=== PATIENT | female | born 1970 | race Caucasian/White ===

== ENCOUNTER 2019-01-17 01:38 | Outpatient (CLI) | payer OTHER, SELFPAY ==
--- NOTE | 2019-01-17 15:40 | DI.MRI_ITS ---
SYMPTOMS/DIAGNOSIS: LEFT SHOULDER PAIN, M25.512, ARM BURNING, LOSS OF RANGE OF MOTION MRI OF THE LEFT SHOULDER: Routine noncontrast examination was performed. There is hyperintense signal seen in the supraspinatus tendon consistent with a partial tear. The infraspinatus, teres minor and subscapularis tendons are intact. The rotator cuff muscles show normal signal and size. No significant muscular fatty atrophy is seen. The biceps tendon has a normal appearance and location. There is a small amount of fluid in the subacromial-subdeltoid bursa. There is a normal amount of fluid seen in the glenohumeral joint. The articular cartilage of the glenohumeral joint appears well maintained. The glenoid labrum appears grossly unremarkable on this noncontrast examination. Marrow signal is within normal limits. No evidence of an occult fracture or avascular necrosis is present. No soft tissue mass is appreciated. The ligaments appear intact. IMPRESSION: 1. Partial tear of the supraspinatus tendon. 2. Small amount of fluid in the subacromial-subdeltoid bursa consistent with bursitis.
== END 2019-01-17 01:58 ==
PROVIDERS: PCP Family Medicine; Visit Provider Physician Assistant Medical
DX: M25.512 Pain in left shoulder (principal); M25.812 Other specified joint disorders, left shoulder; M75.102 Unspecified rotator cuff tear or rupture of left shoulder, not specified as traumatic
CPT/HCPCS: 73221

== ENCOUNTER → 2019-02-11 07:57 | Outpatient (BNVA) | payer MEDICARE, MEDICAID, SELFPAY | PROVIDERS: PCP Family Medicine; Referring Provider Family Medicine; Visit Provider Orthopaedic Surgery | DX: R69 Illness, unspecified (principal) ==

== ENCOUNTER 2019-02-11 08:02 | Day surgery (SDC) | payer MEDICARE, MEDICAID, SELFPAY ==
[2019-02-11] VITALS (10 sets, daily range): BP systolic 102–130; BP diastolic 60–82; PULSE 62–74; RESP 12–19; TEMP 36.5–36.7; O2SAT 96–98
[2019-02-11] MEDS: Lactated Ringers 1,000 ML 80 ML IV ×2 (09:02→13:55)
[2019-02-11] MEDS: Bupivacaine LIPOSOME/PF 133 MG/10 ML VIAL IJ (11:40)
[2019-02-11] MEDS: Bupivacaine 0.5% Pres-Free 30 ML VIAL (11:40)
--- NOTE | 2019-02-11 15:39 | W.PM.DSUDISC ---
Discharge Plan Disposition Patient Disposition: HOME Condition: Good Discharge Details Reason For Visit: L rotator cuff repair Admit Date/Time: 02/11/19 08:02 Admit Provider: Micky Parikh Attending Provider: Micky Parikh Primary Care Provider: Vanessa Lewis Home Meds and New Rx's Prescriptions: New ibuprofen 600 mg tablet 600 mg PO TID Qty: 30 RF: 0 oxycodone-acetaminophen 5-325 mg tablet 1 tab PO Q4H PRN (Reason: pain) Qty: 20 RF: 0 Continued levothyroxine 125 MCG tablet 125 mcg PO DAILY RF: 0 Botox 100 UNIT recon soln IJ DIRECTED. RF: 0 lidocaine 5 % Adhesive Patch,Medicated 1 patch TOPICAL DAILY RF: 0 sertraline 25 mg Tablet 75 mg PO HS RF: 0 ranitidine HCl 150 mg Capsule 150 mg PO BID RF: 0 cetirizine 10 mg Capsule 10 mg PO DAILY RF: 0 acetaminophen [Pain Reliever Extra Strength] 500 MG tablet 500 mg PO PRN PRNRF: 0 spironolactone 25 MG tablet 25 mg PO DAILY RF: 0 lisinopril 2.5 MG tablet 2.5 mg PO DAILY RF: 0 metoprolol succinate 50 MG tablet extended release 24 hr 50 mg PO DAILY RF: 0 aspirin 81 MG tablet,delayed release (DR/EC) 81 mg PO DAILY RF: 0 atorvastatin [Lipitor] 80 MG tablet 80 mg PO QPM Qty: 30 RF: 3 pantoprazole 40 MG tablet,delayed release (DR/EC) 40 mg PO BID Qty: 60 RF: 1 rosuvastatin [Crestor] 40 MG tablet 40 mg PO HS RF: 0 Discontinued naproxen 250 mg Tablet 250 mg PO DAILY RF: 0 Discharge Instructions Additional Instructions: Keep sling/pillow on 29/05. May remove to dress and shower. When out of sling keep L arm at side--don't reach away from body with L arm. Apply cryocuff continuously to L shoulder overnite tonite. Tomorrow, start to use 4 times/day for 1 hour each time. May remove dressings, shower, and get incision wet in 72 hours. May leave incision uncovered when it is dry and sealed. Take ibuprofen 3 times/day for 10 days to decrease inflammation and pain. Take oxycodone for breakthru pain. Follow up with in 2 weeks. Referrals: Micky Parikh MD [ [facility] STAFF PHYSICIAN] - (f/u in 2 weeks.) Activity:: Activity as Tolerated Equipment/Supplies:: sling/pillow Diet:: As Tolerated Discharge Orders Discharge Orders: Discharge Order (Routine); Ordered 02/11/19 Ordered By: Micky Parikh DS: Diagnosis Discharge Diagnosis (1) Left rotator cuff tear: Status: Chronic
[2019-02-11] MEDS: oxyCODONE-CR 10 MG TABCR PO (16:10)
--- NOTE | 2019-02-12 16:45 | ROE_ITS ---
DATE OF PROCEDURE: February 11, 2019 PREOPERATIVE DIAGNOSIS: 1. Torn rotator cuff, left. 2. DJD of the AC joint, left. POSTOPERATIVE DIAGNOSIS: Same. PROCEDURE: 1. Repair of torn rotator cuff, left. 2. Excision of the distal clavicle, left. ANESTHESIA: General. SURGEON: Micky Parikh M.D. AGRICULTURAL SALES REPRESENTATIVE: Manas Voss INDICATIONS: This is a 48-year-old white female who fell onto her left shoulder about four months ag o. She has had continued pain in her left shoulder since that time. This has not responded to conse rvative treatment. It is interfering with sleep and activities of daily living. MRI scan showed eit her a high-grade partial-thickness tear or a full-thickness tear of the supraspinatus tendon on the l eft, as well as DJD of the AC joint. Because of failure of conservative treatment to alleviate her p ain, surgery was recommended. The risks and complications of the procedure were explained to the pat ient in detail preoperatively. PROCEDURE: The patient was taken to the Operating Room on 02/11/19. She was placed supine on the oper ating table and a general anesthetic was administered. She was placed in the lozada chair position a nd then the left shoulder was prepped and draped free in the usual sterile fashion. An incision was made on the superior aspect of the left shoulder beginning medial to the AC joint and it was extended lateral to the anterolateral corner of the acromion by about two inches. The incisi on was carried down to the fascia. The deltoid fascia was then split in line with the fibers of the deltoid at the anterolateral corner of the acromion and then the anterior deltoid was sharply reflect ed from the anterior acromion and anterior distal clavicle. An acromioplasty was performed to improv e exposure. The patient had a high-grade partial-thickness tear; it was probably 80% to 90% through into the joint. It was involving the supraspinatus tendon. I then completed the tear, freeing up th e supraspinatus from the tuberosity, where I then debrided the abnormal tendon tissue down to healthy tendon. I prepared the footprint with a rasp so there was bleeding bone. I then put a single 5.0 m m anchor into the attachment of the supraspinatus. I then placed sutures of the FiberWire from the a nchor through the supraspinatus tendon in a horizontal mattress fashion. The wound was irrigated wit h saline solution and the joint was inspected and no injury to the articular cartilage of the humeral head was seen. The biceps tendon appeared to be intact. I tied the sutures tightly from the anchor . I then completed the repair by approximating the ends of the tendon with interrupted [id number] ht sutures of #1 Vicryl suture material. An excellent water-tight closure was obtained without tensi on. I then inspected the AC joint. The distal clavicle was hypertrophied with no normal tissue visible o n the distal clavicle. The distal 5 mm of the clavicle was then excised with the oscillating saw. T he resected end of the clavicle was packed with bone wax to limit bleeding. The wound was irrigated with Betadine and saline solution. The wound margins were infiltrated with 0.5% Marcaine with an epi nephrine solution. Three drill holes were placed through the anterior acromion and then the anterior deltoid was reattached to the acromion with [id number] sutures of #2 FiberWire, passed through the drill holes in the acromion in a [id number]-[id number]-tzdef fashion. The lateral deltoid muscle split was r epaired with interrupted [id number]-ab-eexxv sutures of #1 Vicryl suture material. The AC joint capsule was repaired with a few interrupted #2 FiberWire sutures and the periosteum over the distal clavicle was approximated with interrupted #1 Vicryl suture material. The subcu was approximated with interru pted #2-0 Vicryl sutures and a subcuticular closure was performed with #4-0 Vicryl, supplemented with tissue glue. Sterile dressings were applied followed by a light pressure dressing. The left upper extremity was then placed in an abduction pillow sling orthosis. Her anesthesia was reversed without complications. Estimated blood loss was 50 to 75 cc's. She was discharged to Recovery in good cond ition. Although I expected to admit this patient OBV overnight, she insisted on going home. She had good pa in relief from her interscalene block and did not want to stay in the hospital. She was therefore di scharged home from the Day Surgery Unit. She was given instructions to wear the abduction pillow sli ng orthosis at all times, even to sleep. She is to sleep propped up in bed or in a recliner. She ma y remove the sling/pillow to shower and dress. She may remove her dressings, shower and get her inci sions wet in 72 hours. She was given a prescription for inflammation of ibuprofen 600 mg p.o. t.i.d. for ten days and a prescription for pain of Oxycodone with APAP 5/325 one tablet every four hours, a s needed. She will follow-up with me in two weeks.
== END 2019-02-11 16:47 | disposition home or self-care (01) | DRG 512 ==
LOC: PDS 15:40 → SUR 02-26 16:06
PROVIDERS: PCP Family Medicine; Visit Provider Orthopaedic Surgery
PROC: 0LQ20ZZ Repair Left Shoulder Tendon, Open Approach (ICD-10-PCS; CPT 23410; principal; 2019-02-11 10:30)
DX: S46.012A Strain of muscle(s) and tendon(s) of the rotator cuff of left shoulder, initial encounter (principal); W19.XXXA Unspecified fall, initial encounter; M19.012 Primary osteoarthritis, left shoulder; F17.210 Nicotine dependence, cigarettes, uncomplicated; E03.9 Hypothyroidism, unspecified; G89.18 Other acute postprocedural pain
CPT/HCPCS: 64415; 23410; 23120; 76942; C1713; L3670

== ENCOUNTER 2019-02-26 10:21 | Outpatient (CLI) | payer MEDICARE, MEDICAID, SELFPAY ==
--- NOTE | 2019-02-26 10:14 | DI.RAD_ITS ---
SYMPTOMS/DIAGNOSIS: FOLLOW UP LEFT SHOULDER: A metallic anchor is seen in the humeral head related to previous rotator cuff repair. There has been resection of the distal clavicle. The humeral head appears normally positioned.
== END 2019-02-26 10:41 ==
PROVIDERS: PCP Family Medicine; Referring Provider Family Medicine; Visit Provider Orthopaedic Surgery
DX: S46.012D Strain of muscle(s) and tendon(s) of the rotator cuff of left shoulder, subsequent encounter (principal); X58.XXXD Exposure to other specified factors, subsequent encounter
CPT/HCPCS: 73020

== ENCOUNTER 2019-06-12 16:27 | Emergency (ER) | payer MEDICARE, MEDICAID, SELFPAY ==
[2019-06-12 16:31] VITALS: BP 118/75; PULSE 64; RESP 12; TEMP 36.6; O2SAT 96
--- NOTE | 2019-06-12 16:38 | W.ED.GENAD ---
Discharge Plan Disposition Patient Disposition: HOME Condition: Good Discharge Details Chief Complaint: Laceration Clinical Impression: Hand laceration Primary Care Provider: Vanessa Lewis ED Provider: Siri Gutierrez Home Meds and New Rx's Prescriptions: Continued oxycodone-acetaminophen 5-325 mg tablet 1 tab PO Q6H MDD 20 mg PRN (Reason: pain) Qty: 20 RF: 0 ibuprofen 600 mg tablet 600 mg PO TID Qty: 30 RF: 0 levothyroxine 125 MCG tablet 125 mcg PO DAILY RF: 0 Botox 100 UNIT recon soln 0 IJ DIRECTED. RF: 0 lidocaine 5 % Adhesive Patch,Medicated 1 patch TOPICAL DAILY RF: 0 sertraline 25 mg Tablet 75 mg PO HS RF: 0 ranitidine HCl 150 mg Capsule 150 mg PO BID RF: 0 cetirizine 10 mg Capsule 10 mg PO DAILY RF: 0 oxycodone-acetaminophen [Percocet] 5-325 mg tablet 1 tab PO HS PRN RF: 0 acetaminophen [Pain Reliever Extra Strength] 500 MG tablet 500 mg PO PRN PRNRF: 0 spironolactone 25 MG tablet 25 mg PO DAILY RF: 0 lisinopril 2.5 MG tablet 2.5 mg PO DAILY RF: 0 metoprolol succinate 50 MG tablet extended release 24 hr 50 mg PO DAILY RF: 0 aspirin 81 MG tablet,delayed release (DR/EC) 81 mg PO DAILY RF: 0 atorvastatin [Lipitor] 80 MG tablet 80 mg PO QPM Qty: 30 RF: 3 pantoprazole 40 MG tablet,delayed release (DR/EC) 40 mg PO BID Qty: 60 RF: 1 rosuvastatin [Crestor] 40 MG tablet 40 mg PO HS RF: 0 Discharge Instructions Instructions: Laceration (ED) Additional Instructions: Please keep wound clean, dry, covered. Keep current dressing on for the next 24 hours. After that, please cover the Band-Aid. When appropriate, please wear gloves. Please monitor for signs of infection including redness, warmth, drainage, increased pain, fever/chills. If these or other new/worsening symptoms arise please seek care urgently once again. Please return in 10 days for suture removal. Referrals: Vanessa Lewis [Primary Care Provider] - Discharge Data Discharge Date/Time-TO BE ENTERED AT DEPARTURE: 06/12/19 17:26 Medical Decision Making Patient is a 49 year old RHD [facility] with c/c of laceration to the left thenar emmanance. Reports that she was cutting zip ties off of a new bike with an exacto knife when she slipped and cut her hand. Denies other injury at the time of the incident. Tetanus UTD, she reports last 2 years. Denies numbness or tingling but patient has dimnished 2 point discrimination on exam. She has a large amount of soft tissue swelling around the wound. Appears to have injured a vessel, patient actively bleeding. Do not see evidence of deep structure injury. Ligamentous exam is intact. Full ROM of thumb. Laceration is 3cm over the left thenar emmenance. Patient and I discussed risks/benefits of closure. Discussed expected procedural steps, she voices understanding and wishes to proceed. Please see procedure note. Patient tolerated this well. Preformed with standard sterile technique. Wound explored to base in a bloodless field with no FB or debris noted. Discussed wound care in depth. Wound dressed by myself. She will return for suture removal in 10 days. discussed sxs of infection and when to seek care urgently once again. All of her questions and cocncerns were addressed, she is in agreemtn with this plan. HPI General Mode of arrival: ambulatory. Date/Time Provider Initiated Documentation: 06/12/19 16:30. Limitations to Documentation: no limitations. Information obtained by: patient and RN notes reviewed. History of Present Illness 49 year old F presents to the emergency department with the chief complaint of left hand laceration, described as severe, with intensity rated at 10. Quality is described as burning, and is localized to the left and upper extremity. Patient reports no radiation. Patient started experiencing this minute(s) and it has been constant. No relieving factors improve symptom(s), Movement worsens symptoms . Patient notes no other symptoms.. Patient did receive the following treatments prior to arrival, none Related Data Home Medications Medication Instructions Recorded Confirmed levothyroxine 125 mcg PO DAILY 04/17/15 02/26/19 Botox 0 IJ DIRECTED. vial 07/27/16 02/26/19 acetaminophen [Pain Reliever Extra 500 mg PO PRN PRN 11/11/16 02/26/19 Strength] lisinopril 2.5 mg PO DAILY 02/08/17 02/26/19 spironolactone 25 mg PO DAILY 02/08/17 02/26/19 aspirin 81 mg PO DAILY tabec 02/09/17 02/26/19 atorvastatin [Lipitor] 80 mg PO QPM #30 tab 02/09/17 02/26/19 metoprolol succinate 50 mg PO DAILY 02/09/17 02/26/19 pantoprazole 40 mg PO BID #60 tabcr 02/09/17 02/26/19 rosuvastatin [Crestor] 40 mg PO HS 08/28/17 02/26/19 cetirizine 10 mg PO DAILY 02/07/19 02/26/19 lidocaine 1 patch TOPICAL DAILY 02/07/19 02/26/19 ranitidine HCl 150 mg PO BID 02/07/19 02/26/19 sertraline 75 mg PO HS 02/07/19 02/26/19 ibuprofen 600 mg tablet 600 mg PO TID #30 tab 02/26/19 02/26/19 oxycodone-acetaminophen 5 mg-325 1 tab PO Q6H PRN #20 tab MDD 20 mg 02/26/19 02/26/19 mg tablet oxycodone-acetaminophen 5 mg-325 1 tab PO HS PRN tab 03/05/19 mg tablet Previous Rx's Medication Instructions Recorded aspirin 81 mg PO DAILY tabec 02/09/17 atorvastatin [Lipitor] 80 mg PO QPM #30 tab 02/09/17 pantoprazole 40 mg PO BID #60 tabcr 02/09/17 ibuprofen 600 mg tablet 600 mg PO TID #30 tab 02/26/19 oxycodone-acetaminophen 5 mg-325 1 tab PO Q6H PRN #20 tab MDD 20 mg 02/26/19 mg tablet Allergies Allergy/AdvReac Type Severity Reaction Status Date / Time fluconazole [From Diflucan] AdvReac Intermediate chest Verified 06/12/19 16:33 tightness General Stated Complaint: Laceration ROHITH: 3 Review of Systems Constitutional Reports as per HPI, Denies chills and Denies fever(s) Musculoskeletal Reports as per HPI Integumentary/Breasts Reports as per HPI Neurologic Reports as per HPI, Denies sensory deficit and Denies paresthesias PFSH Medical History Abnormal Pap smear of cervix ADHD (Acute) Alcohol abuse CAD (coronary atherosclerotic disease) (Acute) Gastric ulcer with perforation H/O: menorrhagia Hx of dysmenorrhea Hyperlipemia (Acute) Hypothyroid Pneumonia PTSD (post-traumatic stress disorder) (Acute) Tobacco use Social History Smoking/Tobacco Use Status: Current every day Tobacco Type: cigarettes Alcohol Intake: never Drug use: Rarely Do you feel safe at home: Yes Do you feel safe in your relationship?: Yes Exam Const General: cooperative, healthy appearing, comfortable, no acute distress and well developed Nutritional Appearance: average body habitus and well nourished Orientation: alert and awake Resp Effort & Inspection: normal respiratory effort, able to speak in complete sentences and no respiratory distress Cardio Rate: regular rate Rhythm: regular rhythm Skin Trauma: laceration (3cm linear to left thenar emmenance, into subQ, deep structures intact) Neuro General: alert and awake Cognition: normal cognition Speech: speech normal Gait: normal gait Sensory Exam: no sensory deficits noted Extrem Left upper extremity: full ROM, normal capillary refill and hand Details: abnormal to inspection (laceration), normal capillary refill, neuromotor exam normal (full ROM of thumb, ligamentously intact) Details: wrist extension normal, thumb opposition normal and thumb IP flexion normal, neurosensory exam abnormal (2 point diminished over thumb, only feeling one point), tendon exam normal, tenderness, vascular exam Details: radial pulse present and normal capillary refill, normal ROM of fingers and swelling (around laceration); no unusual warmth; abnormal to inspection (laceration as above. Surrounding soft tissue swelling) Hand/finger images: 1. laceration Psych Appearance: grossly normal and well kempt Mental Status: mental status grossly normal Speech and Movement: speech and movement normal Course Vital Signs Temperature 36.6 C 06/12/19 16:31 Pulse 64 06/12/19 16:31 Respiratory Rate 12 06/12/19 16:31 Blood Pressure 118/75 06/12/19 16:31 Pulse Oximetry 96 06/12/19 16:31 Temperature 36.6 C 06/12/19 16:31 Temperature Source Temporal Artery Scan 06/12/19 16:31 Pulse 64 06/12/19 16:31 Respiratory Rate 12 06/12/19 16:31 Respiratory Effort Non-Labored 06/12/19 16:32 Blood Pressure 118/75 06/12/19 16:31 Blood Pressure Position Sitting 06/12/19 16:31 Pulse Oximetry 96 06/12/19 16:31 Oxygen Delivery Method Room Air 06/12/19 16:31 Oxygen Flow Rate 0 06/12/19 16:31 Pain Level 10 06/12/19 16:31 Procedures Laceration Laceration 1: Site: hand Side (If applicable): left Size (cm): 3 Description: linear Depth: simple, single layer Local Anesthetic: Lidocaine 1% and with Epi Amount of anesthesia used (mL): 6 Pre-repair: wound explored, irrigated extensively, deep structures intact and extensive debridement Skin layer closed with: nylon Size (cm): 5-0 Number of sutures: 5 Technique: simple, interrupted
== END 2019-06-12 17:26 | disposition home or self-care (01) ==
PROVIDERS: Emergency Provider Physician Assistant; PCP Family Medicine
DX: S61.412A Laceration without foreign body of left hand, initial encounter (principal); W26.0XXA Contact with knife, initial encounter
CPT/HCPCS: 12002

== ENCOUNTER 2019-06-20 11:40 | Emergency (ER) | payer MEDICARE, MEDICAID, SELFPAY ==
[2019-06-20 11:47] VITALS: BP 97/44; PULSE 122; RESP 20; TEMP 36.7; O2SAT 95
--- NOTE | 2019-06-20 12:57 | ED.GENADUL_ITS ---
Discharge Plan Disposition Patient Disposition: HOME Condition: Good Discharge Details Chief Complaint: Recheck Clinical Impression: Encounter for removal of sutures Primary Care Provider: Vanessa Lewis ED Provider: Siri Gutierrez Home Meds and New Rx's Prescriptions: Continued oxycodone-acetaminophen 5-325 mg tablet 1 tab PO Q6H MDD 20 mg PRN (Reason: pain) Qty: 20 RF: 0 ibuprofen 600 mg tablet 600 mg PO TID Qty: 30 RF: 0 levothyroxine 125 MCG tablet 125 mcg PO DAILY RF: 0 Botox 100 UNIT recon soln 0 IJ DIRECTED. RF: 0 lidocaine 5 % Adhesive Patch,Medicated 1 patch TOPICAL DAILY RF: 0 sertraline 25 mg Tablet 75 mg PO HS RF: 0 ranitidine HCl 150 mg Capsule 150 mg PO BID RF: 0 cetirizine 10 mg Capsule 10 mg PO DAILY RF: 0 oxycodone-acetaminophen [Percocet] 5-325 mg tablet 1 tab PO HS PRN RF: 0 acetaminophen [Pain Reliever Extra Strength] 500 MG tablet 500 mg PO PRN PRNRF: 0 spironolactone 25 MG tablet 25 mg PO DAILY RF: 0 lisinopril 2.5 MG tablet 2.5 mg PO DAILY RF: 0 metoprolol succinate 50 MG tablet extended release 24 hr 50 mg PO DAILY RF: 0 aspirin 81 MG tablet,delayed release (DR/EC) 81 mg PO DAILY RF: 0 atorvastatin [Lipitor] 80 MG tablet 80 mg PO QPM Qty: 30 RF: 3 pantoprazole 40 MG tablet,delayed release (DR/EC) 40 mg PO BID Qty: 60 RF: 1 rosuvastatin [Crestor] 40 MG tablet 40 mg PO HS RF: 0 Discharge Instructions Instructions: Laceration (ED) Additional Instructions: Please continue to keep wound clean, dry, covered. Continue to monitor for signs of infection including spreading of redness, increased pain, fevers/chills, drainage. If these develop please seek care urgently once again. Please allow steri strips to fall off naturally. Referrals: Vanessa Lewis [Primary Care Provider] - Discharge Data Discharge Date/Time-TO BE ENTERED AT DEPARTURE: 06/20/19 13:30 Medical Decision Making Patient is a 49-year-old [id number] female presenting today with chief complaint of infected laceration to the left inner eminence. Patient was seen by myself 8 days ago at which time her laceration was closed with simple interrupted stitches. She tolerated that well. Reports that over the past few days the area has become itchy. States is also been having some discomfort particularly when pushing off of the hand to this area. On exam, she does have a small area of erythema immediately around the incision. This appears appropriate does not appear extending to increase my concern for infection. There is no area of fluctuance. No discharge elicited with palpation. The wound appears to be healing well and he feels good sutures can be removed. Sutures removed by myself. She tolerated this well. Steri-Strips were then used to reinforce the wound and were held down with adhesive at the edges. She is given strict return precautions, in particular signs of infection. All the questions and concerns were addressed and she is in agreement this plan. HPI General Mode of arrival: ambulatory . Date/Time Provider Initiated Documentation: 06/20/19 11:52 . Limitations to Documentation: no limitations . Information obtained by: patient, family and RN notes reviewed . History of Present Illness 49 year old F presents to the emergency department with the chief complaint of pain to laceration left hand, described as moderate, with intensity rated at 8. Quality is described as aching, and is localized to the left and upper extremity. Patient reports no radiation. Patient started experiencing this day(s) and it has been constant. Immobilization improves symptom(s), Movement worsens symptoms (worse with pressure applied) . Patient notes no other symptoms.. Patient did receive the following treatments prior to arrival, none Related Data Home Medications Medication Instructions Recorded Confirmed levothyroxine 125 mcg PO DAILY 04/17/15 02/26/19 Botox 0 IJ DIRECTED. vial 07/27/16 02/26/19 acetaminophen [Pain Reliever Extra 500 mg PO PRN PRN 11/11/16 02/26/19 Strength] lisinopril 2.5 mg PO DAILY 02/08/17 02/26/19 spironolactone 25 mg PO DAILY 02/08/17 02/26/19 aspirin 81 mg PO DAILY tabec 02/09/17 02/26/19 atorvastatin [Lipitor] 80 mg PO QPM #30 tab 02/09/17 02/26/19 metoprolol succinate 50 mg PO DAILY 02/09/17 02/26/19 pantoprazole 40 mg PO BID #60 tabcr 02/09/17 02/26/19 rosuvastatin [Crestor] 40 mg PO HS 08/28/17 02/26/19 cetirizine 10 mg PO DAILY 02/07/19 02/26/19 lidocaine 1 patch TOPICAL DAILY 02/07/19 02/26/19 ranitidine HCl 150 mg PO BID 02/07/19 02/26/19 sertraline 75 mg PO HS 02/07/19 02/26/19 ibuprofen 600 mg tablet 600 mg PO TID #30 tab 02/26/19 02/26/19 oxycodone-acetaminophen 5 mg-325 1 tab PO Q6H PRN #20 tab MDD 20 mg 02/26/19 02/26/19 mg tablet oxycodone-acetaminophen 5 mg-325 1 tab PO HS PRN tab 03/05/19 mg tablet Previous Rx's Medication Instructions Recorded aspirin 81 mg PO DAILY tabec 02/09/17 atorvastatin [Lipitor] 80 mg PO QPM #30 tab 02/09/17 pantoprazole 40 mg PO BID #60 tabcr 02/09/17 ibuprofen 600 mg tablet 600 mg PO TID #30 tab 02/26/19 oxycodone-acetaminophen 5 mg-325 1 tab PO Q6H PRN #20 tab MDD 20 mg 02/26/19 mg tablet Allergies Allergy/AdvReac Type Severity Reaction Status Date / Time fluconazole [From Diflucan] AdvReac Intermediate chest Verified 06/12/19 16:33 tightness General Stated Complaint: Recheck ROHITH: 4 Review of Systems Constitutional Reports as per HPI, Denies chills, Denies fever(s) and Denies weakness Musculoskeletal Reports as per HPI and Denies tingling Integumentary/Breasts Reports as per HPI Neurologic Denies sensory deficit, Denies tingling and Denies weakness [facility] Social History Smoking/Tobacco Use Status: Current every day Tobacco Type: cigarettes Alcohol Intake: never Drug use: Rarely Do you feel safe at home: Yes Do you feel safe in your relationship?: Yes Exam Const General: cooperative, healthy appearing, comfortable, no acute distress and well developed Nutritional Appearance: average body habitus and well nourished Orientation: alert and awake Resp Effort & Inspection: normal respiratory effort, able to speak in complete sentences and no respiratory distress Cardio Rate: regular rate Rhythm: regular rhythm Skin Trauma: laceration (scant amount of erythema around laceration) Neuro General: alert and awake Cognition: normal cognition Speech: speech normal Gait: normal gait Motor: muscle tone normal throughout Sensory Exam: no sensory deficits noted Extrem Left upper extremity: full ROM, normal capillary refill and no joint enlargement; abnormal to inspection (laceration to left thenar emmenance) Psych Appearance: grossly normal and well kempt Mental Status: mental status grossly normal Speech and Movement: speech and movement normal Course Vital Signs Temperature 36.7 C 06/20/19 11:47 Pulse 122 H 06/20/19 11:47 Respiratory Rate 20 06/20/19 11:47 Blood Pressure 97/44 L 06/20/19 11:47 Pulse Oximetry 95 06/20/19 11:47 Temperature 36.7 C 06/20/19 11:47 Temperature Source Temporal Artery Scan 06/20/19 11:47 Pulse 122 H 06/20/19 11:47 Respiratory Rate 20 06/20/19 11:47 Blood Pressure 97/44 L 06/20/19 11:47 Pulse Oximetry 95 06/20/19 11:47 Oxygen Delivery Method Room Air 06/20/19 11:47 Oxygen Flow Rate 0 06/20/19 11:47 Pain Level 8 06/20/19 11:47
[2019-06-20 13:24] VITALS: BP 106/65; PULSE 102; RESP 20; O2SAT 97
== END 2019-06-20 13:30 | disposition home or self-care (01) ==
LOC: ER 13:12
PROVIDERS: Emergency Provider Physician Assistant; PCP Family Medicine
DX: S61.412D Laceration without foreign body of left hand, subsequent encounter (principal); W45.8XXD Other foreign body or object entering through skin, subsequent encounter; Z48.02 Encounter for removal of sutures

== ENCOUNTER 2019-11-21 09:43 | Emergency (ER) | payer MEDICARE, MEDICAID, SELFPAY ==
[2019-11-21 09:48] VITALS: BP 112/99; PULSE 90; RESP 18; TEMP 36.6; O2SAT 96
--- NOTE | 2019-11-21 10:12 | ED.GENADUL_ITS ---
Discharge Plan Disposition Patient Disposition: HOME Condition: Improving Discharge Details Chief Complaint: GI Bleed Clinical Impression: Gastritis Primary Care Provider: Vanessa Lewis ED Provider: Micky Spence Home Meds and New Rx's Prescriptions: Continued Mirena 20 mcg/24 hours (5 yrs) 52 mg intrauterine device 1 device IY ONCE RF: 0 Botox 100 UNIT recon soln 0 IJ .[id number] RF: 0 lidocaine 5 % Adhesive Patch,Medicated 1 patch TOPICAL DAILY RF: 0 acetaminophen 325 mg Tablet 650 mg PO QID PRNRF: 0 sertraline 100 mg Tablet 100 mg PO HS RF: 0 levothyroxine 75 mcg Tablet 75 mcg PO DAILY RF: 0 gabapentin 300 mg Capsule 300 mg PO BID RF: 0 metoprolol succinate 25 mg Tablet Extended Release 24 Hr 12.5 mg PO DAILY RF: 0 cholecalciferol (vitamin D3) [Vitamin D3] 2,000 unit Tablet 1,000 unit PO DAILY RF: 0 pantoprazole 40 MG tablet,delayed release (DR/EC) 40 mg PO DAILY RF: 0 spironolactone 25 MG tablet 12.5 mg PO DAILY RF: 0 lisinopril 2.5 MG tablet 2.5 mg PO DAILY RF: 0 aspirin 81 MG tablet,delayed release (DR/EC) 81 mg PO DAILY RF: 0 rosuvastatin [Crestor] 40 MG tablet 40 mg PO HS RF: 0 Discharge Instructions Instructions: Gastritis (ED) Additional Instructions: Please follow-up for recheck with your regular doctors at the [facility]. Please avoid the use of nonsteroidal medications like Advil or ibuprofen. You may use Tylenol as needed for joint and muscle ache. Please take Carafate as prescribed. Return to the emergency department for any acute concerns. Medical Decision Making 49-year-old female, currently taking daily ibuprofen for history of joint pain, also states she was using alcohol near daily up until 2 weeks ago. She has a history of perforated duodenal ulcer 2011. She presents ER today complaining of 1 week of epigastric pain similar in character to that of 2012 and associated with a few episodes of bloody stool. She states she is been taking her medications including PPI as prescribed. She arrives in some distress but with unremarkable vital signs. She is tender in epigastrium on exam. Differential diagnosis would include gastritis, perforated ulcer, peptic ulcer disease. Must exclude pancreatitis or other foregut pathology. Patient IV access established, she is given parenteral analgesia, PPI, fluids. Laboratories obtained, screening EKG obtained, patient referred for CT of the abdomen. A current medication list from the [facility] was obtained and the medications reconciled. Labs are notable for white count of 5, hematocrit 38, platelets 374. Magnesium low at 1.5 and supplemented. Troponin negative and lipase [address] of the abdomen is without acute finding and reviewed with Dr. Whelan. Patient is improving with medications. I will place her on Carafate as I do believe her recent use of alcohol and ibuprofen have led to gastritis. She will continue her regular medications and follow-up with the [facility]. Lab Data Lab results reviewed: Yes I reviewed the patient's lab results. Labs: Laboratory Results - last 24 hr 11/21/19 11/21/19 10:15 10:15 WBC 5.89 RBC 4.06 Hgb 13.2 Hct 38.8 MCV 95.6 H MCH 32.5 MCHC 34.0 RDW 12.7 Plt Count 374 MPV 9.3 Immature Gran % 0.2 Neutrophils % 46.0 Lymphocytes % 44.3 Monocytes % 6.6 Eosinophils % 1.7 Basophils % 1.2 Absolute Neutrophils 2.71 Absolute Lymphocytes 2.61 Absolute Monocytes 0.39 Absolute Eosinophils 0.10 Absolute Basophils 0.07 Sodium 142 Potassium 4.4 Chloride 104 Carbon Dioxide 26.3 Anion Gap 11.7 H BUN 8 Creatinine 0.76 Estimated GFR/1.73 m2 >= 60.00 Glucose 91 Calcium 9.4 Magnesium 1.5 L Total Bilirubin 0.2 AST 24 ALT 18 Alkaline Phosphatase 22 L Troponin I < 0.05 Total Protein 7.7 Albumin 4.1 Lipase 233 ECG Data Attestation: I personally reviewed and interpreted this ECG (s) as follows: Prior ECG tracings: available for review Interpretation: sinus rhythm, the rate is 55, nonspecific T wave changes and flattening there is not significantly changed versus comparison of March 21, 2018 [facility] General Mode of arrival: ambulatory . Date/Time Provider Initiated Documentation: 11/21/19 09:46 . Limitations to Documentation: no limitations . Information obtained by: patient . History of Present Illness 49 year old F presents to the emergency department with the chief complaint of Epigastric pain, similar to previous ulcer, described as moderate, Quality is described as dull and constant, and is localized to the abdomen. Patient reports radiation to back. Patient started experiencing this day(s) and it has been constant. Eating worsens symptoms . Patient notes other (Blood with brown stool). Patient did receive the following treatments prior to arrival, NSAID Related Data Home Medications Medication Instructions Recorded Confirmed Botox 0 IJ .[id number] vial 07/27/16 09/25/19 lisinopril 2.5 mg PO DAILY 02/08/17 11/21/19 spironolactone 12.5 mg PO DAILY 02/08/17 11/21/19 aspirin 81 mg PO DAILY tabec 02/09/17 11/21/19 rosuvastatin [Crestor] 40 mg PO HS 08/28/17 11/21/19 lidocaine 1 patch TOPICAL DAILY 02/07/19 11/21/19 levonorgestrel 20 mcg/24 hours (5 1 device IY ONCE 09/23/19 11/21/19 yrs) 52 mg intrauterine device acetaminophen 650 mg PO QID PRN 11/21/19 11/21/19 cholecalciferol (vitamin D3) 1,000 unit PO DAILY 11/21/19 11/21/19 [Vitamin D3] gabapentin 300 mg PO BID 11/21/19 11/21/19 levothyroxine 75 mcg PO DAILY 11/21/19 11/21/19 metoprolol succinate 12.5 mg PO DAILY 11/21/19 11/21/19 pantoprazole 40 mg PO DAILY 11/21/19 11/21/19 sertraline 100 mg PO HS 11/21/19 11/21/19 Previous Rx's Medication Instructions Recorded aspirin 81 mg PO DAILY tabec 02/09/17 Allergies Allergy/AdvReac Type Severity Reaction Status Date / Time fluconazole [From Diflucan] AdvReac Intermediate chest Verified 11/21/19 09:56 tightness General Stated Complaint: GI Bleed ROHITH: 3 Review of Systems Narrative: Recently stopped drinking 2 weeks ago, takes ibuprofen daily for joint pain. Denies shortness of breath. No vomiting. States she feels bloated. 8 systems reviewed and otherwise negative. REPLACED BY [facility] Medical History ADHD (Acute) Alcohol abuse DWIx4. currently without Drivers License. Taking Naltrexone since 02/2015. No relapses. CAD (coronary atherosclerotic disease) (Acute) s/p anterior STEMI 01/2017. CT to LAD,OM2 and RCA Encounter for removal and reinsertion of IUD (Acute) Gastric ulcer with perforation Hx of . H/O: menorrhagia treated with Depo Provera since 2004 Hx of dysmenorrhea controlled with DepoProvera since 2004. Is contemplating Mirena IUD. Hyperlipemia (Acute) Hypothyroid Pneumonia 2013 - hospitalized at [facility]. PTSD (post-traumatic stress disorder) (Acute) Tobacco use Social History Smoking/Tobacco Use Status: Current every day Tobacco Type: cigarettes Smoking packs per day: 0.5 Smoking cigarettes per day: 10.0 Alcohol Intake: current Alcohol Intake frequency: 0-2 drinks per day Alcohol type: beer Details: Hx of DWI. Naloxone Rx followed by absitence. Drug use: Occasionally Substance use type: marijuana Details: Last ETOH 2 weeks ago Household members: spouse and other Details: Marie. [employer] partner Number of Children: 0 Education Level: other Details: taking online classes for computer repair current occupation: Medical disability from [employer] Sexually active: Yes Do you think of yourself as: lesbian/esqueda/homosexual Do you feel safe at home: Yes Do you feel safe in your relationship?: Yes Exam Narrative Exam Narrative: GEN: awake, alert, oriented 3. Pleasant, well groomed, interact robin. HEAD: Normocephalic, atraumatic ENT: Mucous membranes moist, oropharynx unremarkable, External ear exam unremarkable EYES: PERRL, EOMI NECK: Full ROM, no RACHEAL, no menigismus CHEST/RESP: Nontender, clear to auscultation bilateral, no wheeze/rhonchi/rales CARDIOVASCULAR: RRR, no murmur, rub estevan. 2+ Rad pulse bilateral ABDOMEN: Soft, tender in the epigastrium, no mass. +Bowel sounds. Dark mucus that was guaiac negative. No masses appreciated. EXT: Full ROM, no edema, no rash Neuro: Grossly normal neurologic exam, conversant, interactive. Psych: Speech fluent, thoughts congruent, affect anxious Course Vital Signs Vital signs: Vital Signs Temperature 36.6 C 11/21/19 09:48 Pulse 90 11/21/19 09:48 Respiratory Rate 18 11/21/19 09:48 Blood Pressure 112/99 H 11/21/19 09:48 Pulse Oximetry 96 11/21/19 09:48 Temperature 36.6 C 11/21/19 09:48 Pulse 90 11/21/19 09:48 Respiratory Rate 18 11/21/19 09:48 Respiratory Effort Non-Labored 11/21/19 09:54 Blood Pressure 112/99 H 11/21/19 09:48 Blood Pressure Position Sitting 11/21/19 09:48 Pulse Oximetry 96 11/21/19 09:48 Oxygen Delivery Method Room Air 11/21/19 09:48 Oxygen Flow Rate 0 11/21/19 09:48 Pain Level 10 11/21/19 09:48
[2019-11-21] MEDS: Normal Saline 1,000 ML 1000 ML IV (10:15)
[2019-11-21 10:19] LABS: Abs Immature Grans 0.01 k/cumm (0.0-0.09); Absolute Basophil Count 0.07 k/cumm (0.0-0.2); Absolute Lymphocyte Count 2.61 k/cumm (1.2-3.4); Absolute Monocyte Count 0.39 k/cumm (0.11-0.7); Absolute Neutrophil Count 2.71 k/cumm (1.2-6.7); Basophils % 1.2; Eosinophils % 1.7; HCT 38.8 % (36.0-46.0); HGB 13.2 g/dL (12.0-15.5); Immature Grans % 0.2 %; Lymphocytes % 44.3; Mean Corpuscular Hemoglobin 32.5 pg (27.0-33.0); Mean Corpuscular Volume 95.6 fL (80-95); Mean Platelet Volume 9.3 fL (8.0-11.0); Monocytes % 6.6; Platelet Count 374 x1000/uL (130-400); RBC 4.06 m/cumm (4.00-5.20); RBC Distribution Width 12.7 % (11.7-14.6); White Blood Cell Count 5.89 k/cumm (4.4-10.8)
[2019-11-21] MEDS: Pantoprazole 40 MG VIAL 80 MG IVP (10:20)
[2019-11-21] MEDS: Ondansetron 4 MG/2 ML VIAL IVP (10:24)
[2019-11-21] MEDS: Omnipaque 350 MG/ML 50 ML BTL PO (10:27)
[2019-11-21] MEDS: Breeza Beverage 473 ML BTL PO (10:27)
[2019-11-21] MEDS: HYDROmorphone 2 MG/ML VIAL 1 MG IVP (10:30)
[2019-11-21 10:35] LABS: ALT 18 U/L (14-59); AST 24 U/L (15-37); Albumin 4.1 g/dL (3.4-5.0); Alkaline Phosphatase 22 U/L (46-116); Anion Gap 11.7 mmol/L (3-11); BUN 8 mg/dL (7-18); Bilirubin, Total 0.2 mg/dL (0.2-1.0); CO2 26.3 mmol/L (21.0-32.0); CREATININE 0.76 mg/dL (0.55-1.02); Calcium 9.4 mg/dL (8.5-10.1); Chloride 104 mmol/L (98-107); Glucose 91 mg/dL (74-106); Lipase 233 U/L (73-393); Magnesium 1.5 mg/dL (1.8-2.4); Potassium 4.4 mmol/L (3.5-5.1); Sodium 142 mmol/L (136-145); Total Protein 7.7 g/dL (6.4-8.2); Troponin I < 0.05 ng/Ml (<0.06)
[2019-11-21] MEDS: MAGNESIUM SULFATE 1 GM/100 ML BAG IVPB (10:46)
[2019-11-21] MEDS: Normal Saline Flush 10 ML SYR IVP (10:48)
[2019-11-21 11:27] LABS: Bilirubin Negative (Negative); Blood Trace-lysed (Negative); Clarity Clear (Clear); Glucose Negative (Negative); Ketones Negative (Negative); Leukocyte Esterase Negative (Negative); Nitrite Negative (Negative); Urobilinogen 0.2 EU/dL (Up TO 0.2); pH 6.5 (5-8)
[2019-11-21 11:37] LABS: Bacteria Rare HPF (Negative); C & S Indicated? No; Casts Negative LPF (Negative); Crystals Negative HPF (Negative); Epithelial Cells Rare HPF (Negative); Mucus Negative (Negative); RBC 0-2 HPF (0-2); WBC 0-2 HPF (0-5)
--- NOTE | 2019-11-21 11:50 | DI.CT_ITS ---
EXAM: CT ABDOMEN PELVIS W CLINICAL HISTORY: Epigastric pain, prev perforated ulcer TECHNIQUE: Post IV and oral contrast. COMPARISON: ABD PELVIS WO CONTRAST from 10/16/2016 CHEST FOR PULMONARY EMBOLUS from 09/16/2017 FINDINGS: The lung bases are clear. The liver, gallbladder, spleen, pancreas, kidneys, adrenals and urinary aime dder are unremarkable. An IUD is noted within the uterus. The ovaries are unremarkable. The appendix appears normal. There is no bowel wall thickening or dilatation. The stomach and duodenum appear norm al. There is no evidence of perforation or surrounding inflammation. There has been no change in the umbilical hernia. A small fatty hernia is seen more superiorly at the level of the liver. The aorta s hows mild calcification distally but is normal in diameter. There are degenerative changes at L5-S1. IMPRESSION: No evidence of perforated ulcer or other acute abnormality.
[2019-11-21] MEDS: Omnipaque 350 MG/ML 100 ML BTL IJ (11:53)
[2019-11-21] MEDS: Normal Saline - Diluent 50 ML VIAL IV (11:54)
[2019-11-21 12:20] VITALS: BP 120/70; PULSE 60; RESP 16; TEMP 36.6; O2SAT 99
== END 2019-11-21 12:30 | disposition home or self-care (01) ==
PROVIDERS: Emergency Provider Emergency Medicine; PCP Family Medicine
DX: K29.01 Acute gastritis with bleeding (principal); R10.13 Epigastric pain; E83.42 Hypomagnesemia
CPT/HCPCS: 36415; 80053; 83690; 93005; 96361; 96365; 96375; 99285; 74177; 81003; 81015; 83735; 84484; 85025; 93010; 99284; J2405; J3475; J3490; Q9967

== ENCOUNTER 2019-11-27 18:50 | Emergency (ER) | payer MEDICARE, MEDICAID, SELFPAY ==
[2019-11-27 18:56] VITALS: BP 143/73; RESP 73; TEMP 36.6; O2SAT 100
--- NOTE | 2019-11-27 19:15 | W.ED.GENAD ---
Discharge Plan Disposition Patient Disposition: HOME Condition: Stable Discharge Details Chief Complaint: Orthopedic Clinical Impression: Bilateral leg pain Primary Care Provider: Vanessa Lewis ED Provider: Saurabh King Home Meds and New Rx's Prescriptions: New prednisone 20 mg tablet 60 mg PO DAILY 5 Days Qty: 15 RF: 0 diazepam [Valium] 5 mg tablet 5 mg PO TID PRN (Reason: muscle spasm) Qty: 20 RF: 0 Continued Mirena 20 mcg/24 hours (5 yrs) 52 mg intrauterine device 1 device IY ONCE RF: 0 Botox 100 UNIT recon soln 0 IJ .[id number] RF: 0 lidocaine 5 % Adhesive Patch,Medicated 1 patch TOPICAL DAILY RF: 0 acetaminophen 325 mg Tablet 650 mg PO QID PRNRF: 0 sertraline 100 mg Tablet 100 mg PO HS RF: 0 levothyroxine 75 mcg Tablet 75 mcg PO DAILY RF: 0 metoprolol succinate 25 mg Tablet Extended Release 24 Hr 12.5 mg PO DAILY RF: 0 cholecalciferol (vitamin D3) [Vitamin D3] 2,000 unit Tablet 1,000 unit PO DAILY RF: 0 pantoprazole 40 MG tablet,delayed release (DR/EC) 40 mg PO DAILY RF: 0 sucralfate [Carafate] 1 gram tablet 1 gm PO TID 14 Days Qty: 42 RF: 0 spironolactone 25 MG tablet 12.5 mg PO DAILY RF: 0 lisinopril 2.5 MG tablet 2.5 mg PO DAILY RF: 0 aspirin 81 MG tablet,delayed release (DR/EC) 81 mg PO DAILY RF: 0 rosuvastatin [Crestor] 40 MG tablet 40 mg PO HS RF: 0 Discharge Instructions Instructions: Diazepam (By mouth), Leg Pain (ED) Additional Instructions: follow up with your primary care provider within 1 week if you have high fevers, severe leg swelling or feel more ill return to the emergency department Medical Decision Making 49 yo female comes in with over a year of bilateral leg pain. Denies fevers, trauma, falls, weakness, swelling. Has no swelling of the extremities, normal 2+ dp/pt pulses and no calf tenderness. STates the pain are in the tibias and thighs. STates it feels like a cramp that comes and goes. Could be spasm vs arthritis. When she is distracted she seems more comfortable so could be partly somatoform as well. Given lack of trauma do not feel xrays indicated. HIstory and physical not consistent with dvt or arterial occlusion. Will start her on steroids and muscle relaxers and advised f/u with pcp, return precautions given Differential Diagnosis Differential Diagnosis: spasm, arthritis, chronic pain HPI General Mode of arrival: ambulatory. Date/Time Provider Initiated Documentation: 11/27/19 19:00. Limitations to Documentation: no limitations. Information obtained by: patient. History of Present Illness 49 year old F presents to the emergency department with the chief complaint of leg pain, described as moderate, and it has been constant. No relieving factors improve symptom(s), No exacerbating factors reported . Related Data Home Medications Medication Instructions Recorded Confirmed Botox 0 IJ .[id number] vial 07/27/16 09/25/19 lisinopril 2.5 mg PO DAILY 02/08/17 11/27/19 spironolactone 12.5 mg PO DAILY 02/08/17 11/27/19 aspirin 81 mg PO DAILY tabec 02/09/17 11/27/19 rosuvastatin [Crestor] 40 mg PO HS 08/28/17 11/27/19 lidocaine 1 patch TOPICAL DAILY 02/07/19 11/27/19 levonorgestrel 20 mcg/24 hours (5 1 device IY ONCE 09/23/19 11/27/19 yrs) 52 mg intrauterine device acetaminophen 650 mg PO QID PRN 11/21/19 11/27/19 cholecalciferol (vitamin D3) 1,000 unit PO DAILY 11/21/19 11/27/19 [Vitamin D3] levothyroxine 75 mcg PO DAILY 11/21/19 11/27/19 metoprolol succinate 12.5 mg PO DAILY 11/21/19 11/27/19 pantoprazole 40 mg PO DAILY 11/21/19 11/27/19 sertraline 100 mg PO HS 11/21/19 11/27/19 sucralfate [Carafate] 1 gm PO TID 14 Days #42 tab 11/21/19 11/27/19 diazepam [Valium] 5 mg PO TID PRN #20 tab 11/27/19 prednisone 60 mg PO DAILY 5 Days #15 tab 11/27/19 Previous Rx's Medication Instructions Recorded aspirin 81 mg PO DAILY tabec 02/09/17 sucralfate [Carafate] 1 gm PO TID 14 Days #42 tab 11/21/19 diazepam [Valium] 5 mg PO TID PRN #20 tab 11/27/19 prednisone 60 mg PO DAILY 5 Days #15 tab 11/27/19 Allergies Allergy/AdvReac Type Severity Reaction Status Date / Time fluconazole [From Diflucan] AdvReac Intermediate chest Verified 11/21/19 09:56 tightness General Stated Complaint: Orthopedic ROHITH: 4 Review of Systems All systems reviewed & are unremarkable except as noted in HPI and below Constitutional Constitutional: Denies chills, Denies fever(s) and Denies weakness Cardiovascular Cardiovascular: Denies chest pain and Denies dyspnea Respiratory Respiratory: Denies cough and Denies dyspnea Gastrointestinal Gastrointestinal: Denies abdominal pain, Denies nausea and Denies vomiting Musculoskeletal Musculoskeletal: Denies joint swelling Neurologic Neurologic: Denies weakness [facility] Social History Smoking/Tobacco Use Status: Current every day Tobacco Type: cigarettes Smoking packs per day: 0.5 Smoking cigarettes per day: 10.0 Alcohol Intake: current Alcohol Intake frequency: 0-2 drinks per day Alcohol type: beer Details: Hx of DWI. Naloxone Rx followed by absitence. 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 Number of Children: 0 Education Level: other Details: taking online classes for computer repair current occupation: Medical disability from [employer] Sexually active: Yes Do you think of yourself as: lesbian/esqueda/homosexual Do you feel safe at home: Yes Do you feel safe in your relationship?: Yes Exam Const General: no acute distress Orientation: alert HENMT Head: normal to inspection Ears: external ears normal General nose exam: external nose normal Mouth: moist mucous membranes Eyes General: appearance normal, both eyes and all related structures Neck Neck: normal visual inspection Resp Effort & Inspection: normal respiratory effort and able to speak in complete sentences Cardio Rate: regular rate Skin General skin exam: no rashes or lesions noted Neuro General: alert and oriented x3 Extrem General: normal to inspection Psych Mental Status: mental status grossly normal Course Vital Signs Vital signs: Vital Signs Temperature 36.6 C 11/27/19 18:56 Respiratory Rate 73 H 11/27/19 18:56 Blood Pressure 143/73 H 11/27/19 18:56 Pulse Oximetry 100 11/27/19 18:56 Temperature 36.6 C 11/27/19 18:56 Temperature Source Skin 11/27/19 18:56 Respiratory Rate 73 H 11/27/19 18:56 Respiratory Effort 11/27/19 18:56 Blood Pressure 143/73 H 11/27/19 18:56 Pulse Oximetry 100 11/27/19 18:56 Oxygen Delivery Method Room Air 11/27/19 18:56 Oxygen Flow Rate 0 11/27/19 18:56
[2019-11-27] MEDS: predniSONE 20 MG TAB 60 MG PO (19:32)
[2019-11-27] MEDS: diazePAM 5 MG TAB PO ×2 (19:32→19:41)
[2019-11-27] MEDS: predniSONE 20 MG TAB 120 MG PO (19:41)
[2019-11-27 19:44] VITALS: BP 143/73; RESP 73; O2SAT 100
== END 2019-11-27 19:50 | disposition home or self-care (01) ==
LOC: ER 19:20
PROVIDERS: Emergency Provider Emergency Medicine; PCP Family Medicine
DX: M79.605 Pain in left leg (principal); M79.604 Pain in right leg
CPT/HCPCS: 99283; J7512

== ENCOUNTER 2019-11-30 16:46 | Emergency (ER) | payer MEDICAID, MEDICARE, SELFPAY ==
[2019-11-30 17:06] VITALS: BP 119/70; PULSE 84; TEMP 36.6; O2SAT 97
--- NOTE | 2019-11-30 18:45 | NUR.NOTE ---
Nursing Note: At 1750 patient was not in the room when provider went in to examine her. At 1822 patient still not in the room. Patient LWBS. Alanna Jackson.
== END 2019-11-30 17:50 | disposition left before discharge ==
PROVIDERS: Emergency Provider Physician Assistant; PCP Family Medicine
DX: Z53.1 Procedure and treatment not carried out because of patient's decision for reasons of belief and group pressure (principal)

== ENCOUNTER 2019-12-10 19:25 | Emergency (ER) | payer MEDICARE, MEDICAID, SELFPAY ==
[2019-12-10 19:38] VITALS: BP 110/70; PULSE 77; RESP 14; TEMP 37; O2SAT 91
--- NOTE | 2019-12-10 19:55 | ED.GENADUL_ITS ---
Discharge Plan Disposition Patient Disposition: HOME Condition: Good Discharge Details Chief Complaint: SOB Clinical Impression: Wheezing-associated respiratory infection Primary Care Provider: Vanessa Lewis ED Provider: Rodríguez Mancilla [place] Meds and New Rx's Prescriptions: New albuterol sulfate 2.5 mg /3 mL (0.083 %) solution for nebulization 2.5 mg IH QID PRN (Reason: shortness of breath or wheezing) Qty: 90 RF: 0 prednisone 20 mg tablet 40 mg PO QHS Qty: 8 RF: 0 Continued Mirena 20 mcg/24 hours (5 yrs) 52 mg intrauterine device 1 device IY ONCE RF: 0 Botox 100 UNIT recon soln 0 IJ .[id number] RF: 0 lidocaine 5 % Adhesive Patch,Medicated 1 patch TOPICAL DAILY RF: 0 acetaminophen 325 mg Tablet 650 mg PO QID PRNRF: 0 sertraline 100 mg Tablet 100 mg PO HS RF: 0 levothyroxine 75 mcg Tablet 75 mcg PO DAILY RF: 0 metoprolol succinate 25 mg Tablet Extended Release 24 Hr 12.5 mg PO DAILY RF: 0 cholecalciferol (vitamin D3) [Vitamin D3] 2,000 unit Tablet 1,000 unit PO DAILY RF: 0 pantoprazole 40 MG tablet,delayed release (DR/EC) 40 mg PO DAILY RF: 0 spironolactone 25 MG tablet 12.5 mg PO DAILY RF: 0 lisinopril 2.5 MG tablet 2.5 mg PO DAILY RF: 0 aspirin 81 MG tablet,delayed release (DR/EC) 81 mg PO DAILY RF: 0 rosuvastatin [Crestor] 40 MG tablet 40 mg PO HS RF: 0 diazepam [Valium] 5 mg tablet 5 mg PO TID PRN (Reason: muscle spasm) Qty: 20 RF: 0 Discharge Instructions Instructions: Wheezing (ED) Additional Instructions: Chest x-ray is clear with no evidence of pneumonia. Continue prednisone for 4 days. Albuterol via neb every 6 hours as needed. Follow up with PCP next week if not better. Return to ED for worsening shortness of breath, chest pain, high fever, lethargy, confusion. Referrals: Vanessa Lewis [Primary Care Provider] - Discharge Data Discharge Date/Time-TO BE ENTERED AT DEPARTURE: 12/10/19 21:15 Medical Decision Making Patient presenting with cough, wheezing and feeling of shortness of breath. Only fleeting intermittent chest pain. Suspect URI with related wheezing due to URI and tobacco use. EKG is unremarkable. Patient ordered for a DuoNeb followed by albuterol neb as well as steroids and chest x-ray. Chest x-ray unremarkable per preliminary radiology read. Patient better after neb treatments and asking for discharge. Given a prescription for albuterol to use with neb machine at home. Prednisone burst over the next few days. Follow- up with primary care next week. Return to ED for high fever, prolonged chest pain, worsening shortness of breath, other concerns or problems. Lab Data Lab results reviewed: Yes I reviewed the patient's lab results. ECG Data Attestation: I personally reviewed and interpreted this ECG (s) as follows: Prior ECG tracings: not available for review Interpretation: Sinus rhythm at 77. Normal interval and axis. Q waves in the septal leads. No ST changes. HPI General Mode of arrival: ambulatory . Date/Time Provider Initiated Documentation: 12/10/19 19:34 . Limitations to Documentation: no limitations . Information obtained by: patient, family, RN notes reviewed and old records reviewed . HPI Narrative: Patient presents to ED with complaint of difficulty breathing, wheezing and cough. She reports symptoms for the last 4 to 5 days. She has had no fever that she is aware of. Does complain of left ear pain and nasal congestion. She is a smoker. She does not carry a diagnosis of asthma or emphysema but has used inhalers and nebulizers in the past. She does have a nebulizer machine at home but does not have the albuterol to use with it. She occasionally experiences fleeting chest pain lasting less than a few seconds and random in nature. She denies any persistent pain, tightness, heaviness. Related Data Home Medications Medication Instructions Recorded Confirmed Botox 0 IJ .[id number] vial 07/27/16 09/25/19 lisinopril 2.5 mg PO DAILY 02/08/17 11/30/19 spironolactone 12.5 mg PO DAILY 02/08/17 11/30/19 aspirin 81 mg PO DAILY tabec 02/09/17 11/30/19 rosuvastatin [Crestor] 40 mg PO HS 08/28/17 11/30/19 lidocaine 1 patch TOPICAL DAILY 02/07/19 11/30/19 levonorgestrel 20 mcg/24 hours (5 1 device IY ONCE 09/23/19 11/30/19 yrs) 52 mg intrauterine device acetaminophen 650 mg PO QID PRN 11/21/19 11/30/19 cholecalciferol (vitamin D3) 1,000 unit PO DAILY 11/21/19 11/30/19 [Vitamin D3] levothyroxine 75 mcg PO DAILY 11/21/19 11/30/19 metoprolol succinate 12.5 mg PO DAILY 11/21/19 11/30/19 pantoprazole 40 mg PO DAILY 11/21/19 11/30/19 sertraline 100 mg PO HS 11/21/19 11/30/19 diazepam [Valium] 5 mg PO TID PRN #20 tab 11/27/19 11/30/19 albuterol sulfate 2.5 mg IH QID PRN #90 ml 12/10/19 prednisone 40 mg PO QHS #8 tab 12/10/19 Previous Rx's Medication Instructions Recorded aspirin 81 mg PO DAILY tabec 02/09/17 diazepam [Valium] 5 mg PO TID PRN #20 tab 11/27/19 albuterol sulfate 2.5 mg IH QID PRN #90 ml 12/10/19 prednisone 40 mg PO QHS #8 tab 12/10/19 Allergies Allergy/AdvReac Type Severity Reaction Status Date / Time fluconazole [From Diflucan] AdvReac Intermediate chest Verified 11/30/19 18:14 tightness General Stated Complaint: SOB ROHITH: 3 Review of Systems Narrative: As documented in HPI otherwise negative as below. Const: no fever, chills, weakness Resp: cough, SOB, wheezing; no pleuritic pain CV: fleeting CP; no diaphoresis, edema, syncope GI: no abdominal pain, nausea, vomiting, diarrhea Neuro: no headache, numbness, focal weakness, confusion [facility] Medical History ADHD (Acute) Alcohol abuse DWIx4. currently without Drivers License. Taking Naltrexone since 02/2015. No relapses. CAD (coronary atherosclerotic disease) (Acute) s/p anterior STEMI 01/2017. CT to LAD,OM2 and RCA Encounter for removal and reinsertion of IUD (Acute) Gastric ulcer with perforation Hx of . H/O: menorrhagia treated with Depo Provera since 2004 Hx of dysmenorrhea controlled with DepoProvera since 2004. Is contemplating Mirena IUD. Hyperlipemia (Acute) Hypothyroid Pneumonia 2013 - hospitalized at [facility]. PTSD (post-traumatic stress disorder) (Acute) Tobacco use Surgical History H/O heart artery stent (Chronic) Social History Smoking/Tobacco Use Status: Current every day Tobacco Type: cigarettes Smoking packs per day: 0.5 Smoking cigarettes per day: 10.0 Alcohol Intake: current Alcohol Intake frequency: holidays/special occasions only Alcohol type: beer Details: Hx of DWI. Naloxone Rx followed by absitence. Drug use: Occasionally Substance use type: marijuana Details: Last ETOH 2 weeks ago Household members: spouse and other Details: Marie. [employer] partner Number of Children: 0 Education Level: other Details: taking online classes for computer repair current occupation: Medical disability from [employer] Sexually active: Yes Do you think of yourself as: lesbian/esqueda/homosexual Do you feel safe at home: Yes Do you feel safe in your relationship?: Yes Exam Narrative Exam Narrative: Vitals: Afebrile. Vital signs normal. Room air pulse ox a little low at 91%. Const: WDWN female in NAD. Drowsy, trouble staying awake. HEENT: NC/AT. Normal facial exam. Dried blood around lips. Eyes: Normal conjunctiva and sclera. Neck: Supple. Trachea midline. Lungs: Normal respiratory effort. Lungs are clear. Cor: RRR without murmur/gallop. Good radial pulses. GI: Soft. NT/ND. No guarding or rebound. Neuro: A+O x 3. Normal speech, mentation, gait. Cranial nerves II - XII grossly intact. No gross motor or sensory deficit. Ext: No C/C/E. Skin: Warm and dry without rash. Course Vital Signs Vital signs: Vital Signs Temperature 98.6 F 12/10/19 19:38 Pulse 77 12/10/19 19:38 Respiratory Rate 14 12/10/19 19:38 Blood Pressure 110/70 12/10/19 19:38 Pulse Oximetry 91 L 12/10/19 19:38 Temperature 98.6 F 12/10/19 19:38 Temperature Source Tympanic 12/10/19 19:38 Pulse 77 12/10/19 19:38 Respiratory Rate 14 12/10/19 19:38 Respiratory Effort Non-Labored 12/10/19 19:41 Blood Pressure 110/70 12/10/19 19:38 Blood Pressure Position Sitting 12/10/19 19:38 Pulse Oximetry 91 L 12/10/19 19:38 Oxygen Delivery Method Room Air 12/10/19 19:38 Oxygen Flow Rate 0 12/10/19 19:38
[2019-12-10] MEDS: Albuterol 2.5 MG/3 ML INH SOLN VIAL UPD (20:15)
[2019-12-10] MEDS: predniSONE 20 MG TAB 60 MG PO (20:15)
[2019-12-10] MEDS: Albuterol/Ipratropium 3 ML UPD VIAL UPD (20:15)
--- NOTE | 2019-12-10 20:26 | DI.RAD_ITS ---
EXAM: XR CHEST 2V PA LATERAL CLINICAL HISTORY: cough, wheezing, SOB. TECHNIQUE: 2D digital imaging was performed. COMPARISON: CHEST 2 VIEWS PA,LAT from 03/21/2018 FINDINGS: LUNGS: Clear. No pleural abnormality seen. HEART: Normal. MEDIASTINUM: Normal. OTHER FINDINGS:Normal. BONE:Normal. IMPRESSION: No acute pulmonary findings.
--- NOTE | 2019-12-10 20:38 | DI.VRAD_ITS ---
PROCEDURE INFORMATION: Exam: XR Chest, 2 Views Exam date and time: 12/10/2019 8:03 PM Age: 49 years old Clinical indication: Other: Cough, wheezing, SOB TECHNIQUE: Imaging protocol: XR of the chest Views: 2 views. COMPARISON: CR CHEST 2 VIEWS PA,LAT 03/21/2018 6:23 AM FINDINGS: Lungs: Clear lungs. Pleural space: No pneumothorax. No sizable pleural effusion. Heart/Mediastinum: No cardiomegaly. Bones/joints: Unremarkable. IMPRESSION: Clear lungs. Dictated and Authenticated by: Bartolome Maciel MD. Ordering:TAMMIE rAreguin MD
== END 2019-12-10 21:15 | disposition home or self-care (01) ==
PROVIDERS: Emergency Provider Emergency Medicine; PCP Family Medicine
DX: R06.9 Unspecified abnormalities of breathing (principal); R06.2 Wheezing; H92.02 Otalgia, left ear; R09.81 Nasal congestion; F17.210 Nicotine dependence, cigarettes, uncomplicated
CPT/HCPCS: 93005; 94640; 99284; 71046; 93010; J7512; J7613; J7620

== ENCOUNTER 2020-01-23 00:32 | Outpatient (CLI) | payer OTHER, SELFPAY ==
--- NOTE | 2020-01-23 14:36 | DI.MRI_ITS ---
EXAM: MR LUMBAR SPINE WO CLINICAL HISTORY: LUMBAR PAIN, RADICULOPATHY, M54.16, [id number]. TECHNIQUE: Multiplanar multisequence MRI was performed. MR examination of the lumbosacral spine was performed according to the usual protocol. FINDINGS: Examination is compared with the prior study from [facility] from 12/18/2015. No significant bony signal abnormality is seen apart from a few presumed small fatty rests of the lum bar vertebral bodies. Moderate facet hypertrophic changes noted, most marked at L4-5 and L5-S1 bilat erally. No significant bony central canal spinal stenosis seen. There appears to be mild bilateral neural foraminal stenosis at L5-S1. Conus medullaris appears intact. The intervertebral discs appear intact from T11-12 through L3-4. There is a small to moderate-sized disc herniation most prominent left lateral at L4-5, this appears grossly unchanged in comparison with the previous examination. This contributes to mild neural mack inal stenosis on the left at this level. At L5-S1, there is a mild broad-based disc herniation, grossly unchanged from the previous examinatio n. IMPRESSION: Mild disc herniations at L4-5 and L5-S1, most prominent findings are laterally at L4-5. Mild bilater al neural foraminal stenosis noted at L5-S1 and there appears to be mild left-sided neural foraminal stenosis at L4-5due to disc herniation and facet hypertrophy. No significant change in appearance in comparison with prior MR of 2016. DATA REPOSITORY:
== END 2020-01-23 00:52 ==
PROVIDERS: PCP Family Medicine; Visit Provider Occupational Therapist
DX: M54.6 Pain in thoracic spine (principal); M51.17 Intervertebral disc disorders with radiculopathy, lumbosacral region; M48.07 Spinal stenosis, lumbosacral region
CPT/HCPCS: 72148

== ENCOUNTER 2020-01-23 14:45 | Emergency (ER) | payer MEDICARE, MEDICAID, SELFPAY ==
[2020-01-23 14:49] VITALS: BP 108/66; PULSE 61; RESP 20; TEMP 36.8; O2SAT 100
[2020-01-23 14:56] VITALS: RESP 20
--- NOTE | 2020-01-23 15:01 | W.ED.GENAD ---
Discharge Plan Disposition Patient Disposition: HOME Condition: Improving Discharge Details Chief Complaint: SOB Clinical Impression: Pneumonia, Acute bronchospasm Primary Care Provider: Vanessa Lewis ED Provider: Feli Thomason Home Meds and New Rx's Prescriptions: New prednisone 20 mg tablet See Rx Instructions .ROUTE .COMPLEX Qty: 12 RF: 0 amoxicillin-pot clavulanate [Augmentin] 875-125 mg tablet 1 tab PO BID 10 Days Qty: 20 RF: 0 albuterol sulfate 90 mcg/actuation aerosol powdr breath activated 2 inh IH Q6H PRN (Reason: shortness of breath or wheezing) Qty: 1 RF: 0 azithromycin [Zithromax] 500 mg tablet 500 mg PO DAILY 5 Days Qty: 5 RF: 0 Continued Mirena 20 mcg/24 hours (5 yrs) 52 mg intrauterine device 1 device IY ONCE RF: 0 Botox 100 UNIT recon soln 0 IJ .[id number] RF: 0 lidocaine 5 % Adhesive Patch,Medicated 1 patch TOPICAL DAILY RF: 0 acetaminophen 325 mg Tablet 650 mg PO QID PRNRF: 0 sertraline 100 mg Tablet 100 mg PO HS RF: 0 levothyroxine 75 mcg Tablet 75 mcg PO DAILY RF: 0 metoprolol succinate 25 mg Tablet Extended Release 24 Hr 12.5 mg PO DAILY RF: 0 cholecalciferol (vitamin D3) [Vitamin D3] 2,000 unit Tablet 1,000 unit PO DAILY RF: 0 pantoprazole 40 MG tablet,delayed release (DR/EC) 40 mg PO DAILY RF: 0 spironolactone 25 MG tablet 12.5 mg PO DAILY RF: 0 lisinopril 2.5 MG tablet 2.5 mg PO DAILY RF: 0 aspirin 81 MG tablet,delayed release (DR/EC) 81 mg PO DAILY RF: 0 rosuvastatin [Crestor] 40 MG tablet 40 mg PO HS RF: 0 albuterol sulfate 2.5 mg /3 mL (0.083 %) solution for nebulization 2.5 mg IH QID PRN (Reason: shortness of breath or wheezing) Qty: 90 RF: 0 Discharge Instructions Instructions: Bronchospasm (ED), Pneumonia (ED) Additional Instructions: Use the inhaler as needed and directed. Take the steroids and antibiotics until finished. Drink plenty of fluids and get plenty of rest. Follow-up with your primary care doctor in 1 week. Return to the emergency department with any worsening or new concerning symptoms. Discharge Data Discharge Physician: Feli Thomason Medical Decision Making [id number] -- 49-year-old female with a history of tobacco and alcohol abuse, coronary artery disease, [place] with coronary stents presents for dry cough with shortness of breath over the past 2 months. Denies any known fever, recent travel, exposure to recent travel or chest pain. Patient is speaking in full sentences and appears in no acute respiratory distress. Vitals within normal limits. She has scattered wheezing throughout. Differential diagnosis includes bronchitis, pneumonia, COPD. Will give a DuoNeb and p.o. steroids and obtain a chest x-ray and reassess. 1630 --chest x-ray notes questionable right lower lobe infiltrate. In setting of patient's symptoms, will treat for pneumonia.. Patient improved after neb and steroids. Patient has been standing in the doorway and is requesting to leave. As she has a history of coronary artery disease and alcohol use, will treat with Augmentin and Zithromax. She was given a prescription for steroids and inhaler. Advised to follow-up with her primary care doctor for evaluation and to return here if worse. Medical Records Medical records reviewed: Yes I reviewed the patient's medical records. Imaging Data Radiologic Study: Radiologist's impression: XR Chest, 2 Views Exam date and time: 01/23/2020 3:51 PM Age: 49 years old Clinical indication: Cough and shortness of breath TECHNIQUE: Imaging protocol: XR of the chest Views: 2 views. COMPARISON: CR XR CHEST 2V PA LATERAL 12/10/2019 8:26 PM FINDINGS: Lungs: There is slight increased density within the right lower lobe and a right lower lobe infiltrate is not excluded. Pleural space: Unremarkable. No pleural effusion. No pneumothorax. Heart/Mediastinum: The cardiac, mediastinal hilar silhouettes appear unremarkable. Bones/joints: There are degenerative changes of the thoracic spine. IMPRESSION: Slight increased density within the right lower lobe could represent a right lower lobe infiltrate. Clinical correlation is recommended. If clinically warranted this could be re-evaluated with a CT scan of the chest as well. HPI General Mode of arrival: ambulatory. Date/Time Provider Initiated Documentation: 01/23/20 14:45. Limitations to Documentation: no limitations. Information obtained by: patient. HPI Narrative: Pt is a 49yo F with a history of alcohol abuse, [place], migraine, narcotic drug abuse, coronary stents presents with dry cough and shortness of breath for the past 2 months. Patient states she has been treated for steroids with this with temporary relief. She states she was here recently for the same complaint but then left prior to evaluation. She denies any known fever. She states she has had a poor appetite. She denies any chest pain. She denies any recent travel or exposure to anyone with recent travel. She denies any sputum production. Related Data Home Medications Medication Instructions Recorded Confirmed Botox 0 IJ .[id number] vial 07/27/16 09/25/19 lisinopril 2.5 mg PO DAILY 02/08/17 01/23/20 spironolactone 12.5 mg PO DAILY 02/08/17 01/23/20 aspirin 81 mg PO DAILY tabec 02/09/17 01/23/20 rosuvastatin [Crestor] 40 mg PO HS 08/28/17 01/23/20 lidocaine 1 patch TOPICAL DAILY 02/07/19 01/23/20 levonorgestrel 20 mcg/24 hours (5 1 device IY ONCE 09/23/19 01/23/20 yrs) 52 mg intrauterine device acetaminophen 650 mg PO QID PRN 11/21/19 01/23/20 cholecalciferol (vitamin D3) 1,000 unit PO DAILY 11/21/19 01/23/20 [Vitamin D3] levothyroxine 75 mcg PO DAILY 11/21/19 01/23/20 metoprolol succinate 12.5 mg PO DAILY 11/21/19 01/23/20 pantoprazole 40 mg PO DAILY 11/21/19 01/23/20 sertraline 100 mg PO HS 11/21/19 01/23/20 albuterol sulfate 2.5 mg IH QID PRN #90 ml 12/10/19 01/23/20 albuterol sulfate 2 inh IH Q6H PRN #1 each 01/23/20 amoxicillin-pot clavulanate 1 tab PO BID 10 Days #20 tab 01/23/20 [Augmentin] azithromycin [Zithromax] 500 mg PO DAILY 5 Days #5 tab 01/23/20 prednisone See Rx Instructions .ROUTE 01/23/20 .COMPLEX #12 tab Previous Rx's Medication Instructions Recorded aspirin 81 mg PO DAILY tabec 02/09/17 albuterol sulfate 2.5 mg IH QID PRN #90 ml 12/10/19 albuterol sulfate 2 inh IH Q6H PRN #1 each 01/23/20 amoxicillin-pot clavulanate 1 tab PO BID 10 Days #20 tab 01/23/20 [Augmentin] azithromycin [Zithromax] 500 mg PO DAILY 5 Days #5 tab 01/23/20 prednisone See Rx Instructions .ROUTE 01/23/20 .COMPLEX #12 tab Allergies Allergy/AdvReac Type Severity Reaction Status Date / Time fluconazole [From Diflucan] AdvReac Intermediate chest Verified 01/23/20 14:52 tightness General Stated Complaint: SOB ROHITH: 3 Review of Systems All systems reviewed & are unremarkable except as noted in HPI and below Constitutional Constitutional: Reports as per HPI, Denies chills and Denies fever(s) Eyes Eyes: Denies blurry vision ENT Ears, Nose, Mouth, and Throat: Denies dizziness, Denies sore throat and Denies throat swelling Cardiovascular Cardiovascular: Denies chest pain and Reports dyspnea Respiratory Respiratory: Reports cough and Reports dyspnea Gastrointestinal Gastrointestinal: Denies abdominal pain, Denies diarrhea and Denies vomiting Genitourinary Genitourinary: Denies hematuria and Denies dysuria Musculoskeletal Musculoskeletal: Denies back pain and Denies numbness Integumentary/Breasts Skin/Breast: Denies lesions and Denies rash Neurologic Neurologic: Denies dizziness, Denies localized weakness and Denies numbness Allergic/Immunologic Allergic/Immunologic: Denies throat swelling [facility] Social History Smoking/Tobacco Use Status: Current every day Tobacco Type: cigarettes Smoking packs per day: 0.5 Smoking cigarettes per day: 10.0 Alcohol Intake: current Alcohol Intake frequency: holidays/special occasions only Alcohol type: beer Details: Hx of DWI. Naloxone Rx followed by absitence. Drug use: Occasionally Substance use type: marijuana Details: Last ETOH 2 weeks ago Household members: spouse and other Details: Marie. long-term partner Number of Children: 0 Education Level: other Details: taking online classes for computer repair current occupation: Medical disability from [employer] Sexually active: Yes Do you think of yourself as: lesbian/esqueda/homosexual Do you feel safe at home: Yes Do you feel safe in your relationship?: Yes Exam Const General: cooperative, healthy appearing and no acute distress HENMT Head: normal to inspection Face and sinus: normal facial exam Eyes General: appearance normal, both eyes and all related structures EOM: EOM intact bilaterally Neck Neck: normal visual inspection and No submandibular swelling Lymphatic: no lymphadenopathy noted Chest Chest: normal inspection of the chest and no tenderness Resp Effort & Inspection: normal respiratory effort and able to speak in complete sentences Auscultation: wheezes scattered wheezes Cardio Rate: regular rate Rhythm: regular rhythm GI Inspection: normal to inspection Palpation: soft, not firm, not rigid and nontender Auscultation: normal bowel sounds Skin General skin exam: no rashes or lesions noted Neuro General: patient alert, patient awake and patient oriented x3 Cognition: normal cognition Speech: speech normal Motor: muscle tone normal throughout Sensory Exam: no sensory deficits noted Extrem General: normal to inspection, full ROM, capillary refill normal, no calf tenderness bilaterally and no edema Psych Appearance: grossly normal Mental Status: mental status grossly normal Speech and Movement: speech and movement normal Affect: animated (baseline) Course Vital Signs Vital signs: Vital Signs Temperature 98.2 F 01/23/20 14:49 Pulse 61 01/23/20 14:49 Respiratory Rate 20 01/23/20 14:49 Blood Pressure 108/66 01/23/20 14:49 Pulse Oximetry 100 01/23/20 14:49 Temperature 98.2 F 01/23/20 14:49 Temperature Source Temporal Artery Scan 01/23/20 14:49 Pulse 61 01/23/20 14:49 Respiratory Rate 20 01/23/20 14:56 Respiratory Effort 01/23/20 14:56 Respiratory Depth Normal 01/23/20 14:56 Respiratory Pattern Normal 01/23/20 14:56 Blood Pressure 108/66 01/23/20 14:49 Blood Pressure Position Sitting 01/23/20 14:49 Pulse Oximetry 100 01/23/20 14:49 Oxygen Delivery Method Room Air 01/23/20 14:49 Oxygen Flow Rate 0 01/23/20 14:49 Pain Level 5 01/23/20 14:49
--- NOTE | 2020-01-23 15:15 | DI.RAD_ITS ---
EXAM: XR CHEST 2V PA LATERAL CLINICAL HISTORY: cough, sob, r/o acute disease TECHNIQUE: COMPARISON: XR CHEST 2V PA LATERAL from 12/10/2019 FINDINGS: Heart is not enlarged. Lungs are generally clear with few minimal linear pulmonary scars. Note is m hernan of coronary artery stents. No pleural effusion. IMPRESSION: No evidence of acute process.
[2020-01-23 15:18] VITALS: O2SAT 100
[2020-01-23] MEDS: Albuterol/Ipratropium 3 ML UPD VIAL (15:18)
[2020-01-23] MEDS: predniSONE 20 MG TAB 60 MG PO (15:28)
--- NOTE | 2020-01-23 16:31 | DI.VRAD_ITS ---
PROCEDURE INFORMATION: Exam: XR Chest, 2 Views Exam date and time: 01/23/2020 3:51 PM Age: 49 years old Clinical indication: Cough and shortness of breath TECHNIQUE: Imaging protocol: XR of the chest Views: 2 views. COMPARISON: CR XR CHEST 2V PA LATERAL 12/10/2019 8:26 PM FINDINGS: Lungs: There is slight increased density within the right lower lobe and a right lower lobe infiltrate is not excluded. Pleural space: Unremarkable. No pleural effusion. No pneumothorax. Heart/Mediastinum: The cardiac, mediastinal hilar silhouettes appear unremarkable. Bones/joints: There are degenerative changes of the thoracic spine. IMPRESSION: Slight increased density within the right lower lobe could represent a right lower lobe infiltrate. Clinical correlation is recommended. If clinically warranted this could be re-evaluated with a CT scan of the chest as well. Dictated and Authenticated by: Guillermo York MD. Ordering:ELMER Edmond MD
== END 2020-01-23 16:46 | disposition home or self-care (01) ==
PROVIDERS: Emergency Provider Physician Assistant; PCP Family Medicine
DX: J18.9 Pneumonia, unspecified organism (principal); J98.01 Acute bronchospasm
CPT/HCPCS: 94640; 99284; 71046; J7512; J7620

== ENCOUNTER 2020-03-31 12:40 | Outpatient (CLI) | payer MEDICARE, MEDICAID, SELFPAY ==
[2020-03-31 13:39] VITALS: BP 100/64; PULSE 75; RESP 18; TEMP 36.9; O2SAT 97
[2020-03-31] MEDS: Omnipaque 240 MG/ML 50 ML BTL IJ (14:12)
[2020-03-31] MEDS: Bupivacaine 0.5% Pres-Free 10 ML VIAL IJ (14:12)
[2020-03-31 14:13] VITALS: BP 113/62; PULSE 69; RESP 13; O2SAT 98
--- NOTE | 2020-03-31 14:15 | DI.RAD_ITS ---
EXAM: XR PAIN CLINIC LUMBAR SP 2V CLINICAL HISTORY: Dx: Lumbar Spondylosis. TECHNIQUE: Fluoroscopy was provided for the referring physician for guidance with performing Pain Cl inic injection procedure. COMPARISON: No exams were available for comparison FINDINGS: Please see procedure note for details. Fluoro Time: 40.1 seconds RADIATION DOSE DELIVERED:
--- NOTE | 2020-03-31 14:15 | PDOC.PAIN ---
Pain Clinic Procedure Note Procedure Note Procedure Note: Procedure: Lumbar/Sacral Medial Branch Blocks Pre-operative diagnosis: lumbar spondylosis Post-operative diagnosis: same as above PITO KNIGHT has been referred to the [facility] for lumbar/sacral medial branch blocks. COMMENTS: patient has been evaluated by Jeanie Fernándezzaida for chronic back pain x 10 years. She is here for diagnostic lumbar medial branch nerve block. Patient was interviewed and the medical record reviewed. There were no medical, pharmacologic, radiographic or other structural contraindications to attempting fluoroscopically guided local anesthetic lumbar/sacral medial branch blocks. Risks and expected side effects as well as potential benefit of the procedure were reviewed and voiced concerns addressed. The printed consent form was signed and witnessed. Standard time-out procedure was performed. Patient was placed in the prone position on the fluoroscopy table and automated blood pressure cuff and pulse oximeter applied. The skin entry points for approaching the anatomic target points of the segmental medial branches of BILATERAL L3, L4, L5-DR were identified with anfluoroscopy and marked. Following thorough Chlorhexadine preparation of the skin and draping and 1% lidocaine infiltration of the skin entry points and subcutaneous tissues, a 3.5in 22 gauge spinal needle was placed under fluoroscopic guidance down on to the target point for each respective segmental medial branch.Position was confirmed in A/P, oblique and lateral views with 0.25ml of omnipaque 240. Coult be this method .5ml 0.5% Bupivacaine was injected. Vital signs were stable throughout the procedure and were as recorded in the docflowsheet by the nursing staff. Follow up plans and appointments were discussed and was instructed to keep careful note of how the usual pain was modified by these injections. Specifically was asked to keep a pain diary for the next 24 hours using a numeric pain scale of 0-10 and report these results at the follow-up visit. Post procedure instruction was given as documented in the nursing documentation and having met discharge criteria. Patient was discharged from the [facility]. Based on the medial branches blocked today, if the patient has adequate relief and we are able to proceed to radiofrequency ablation, the treatment should result in the denervation of the bilateral L4/5 and L5/S1 facets. We would expect to denervate a total of 4 facets during the radiofrequency ablation. COMMENTS: patient tolerated procedure well. Pre-procedure VAS reported as 8 out of 10. Post-procedure VAS 4/10. Patient is instructed to contact pain clinic tomorrow with scores for the next 4 hours. I personally performed the entire procedure. Emma Torres MD Pain Management CC: Vanessa Lewis
== END 2020-03-31 13:00 ==
PROVIDERS: PCP Family Medicine; Visit Provider Internal Medicine
DX: M47.816 Spondylosis without myelopathy or radiculopathy, lumbar region (principal)
CPT/HCPCS: 64493; 64494; 72100; Q9967

== ENCOUNTER 2020-04-28 10:42 | Outpatient (CLI) | payer MEDICARE, MEDICAID, OTHER, SELFPAY ==
[2020-04-28 11:09] VITALS: BP 97/70; PULSE 76; RESP 16; TEMP 36.6; O2SAT 97
--- NOTE | 2020-04-28 11:13 | PDOC.PAIN ---
Pain Clinic Procedure Note Procedure Note Procedure Note: Lumbar/Sacral Medial Branch Blocks PITO KNIGHT has been referred to the [facility] for lumbar/sacral medial branch blocks. Pre-operative diagnosis: lumbar spondylosis Post-operative diagnosis: same as above Patient was interviewed and the medical record reviewed. There were no medical, pharmacologic, radiographic or other structural contraindications to attempting fluoroscopically guided local anesthetic lumbar/sacral medial branch blocks. Risks and expected side effects as well as potential benefit of the procedure were reviewed and voiced concerns addressed. The printed consent form was signed and witnessed. Standard time-out procedure was performed. Patient was placed in the prone position on the fluoroscopy table and automated blood pressure cuff and pulse oximeter applied. The skin entry points for approaching the anatomic target points of the segmental medial branches of bilateral L3, L4, L5-DR were identified with anfluoroscopy and marked. Following thorough Chlorhexadine preparation of the skin and draping and 1% lidocaine infiltration of the skin entry points and subcutaneous tissues, a 22 gauge spinal needle was placed under fluoroscopic guidance down on to the target point for each respective segmental medial branch.Position was confirmed in A/P, oblique and lateral views with 0.25ml of omnipaque 240. Then 0.5ml of 2% Lidocaine was injected at each site. Total of 3cc of 2% lidocaine was used. Vital signs were stable throughout the procedure and were as recorded in the docflowsheet by the nursing staff. Follow up plans and appointments were discussed and was instructed to keep careful note of how the usual pain was modified by these injections. Specifically was asked to keep a pain diary for the next 24 hours using a numeric pain scale of 0-10 and report these results at the follow-up visit. Post procedure instruction was given as documented in the nursing documentation and having met discharge criteria. Patient was discharged from the [facility]. Based on the medial branches blocked today, if the patient has adequate relief and we are able to proceed to radiofrequency ablation, the treatment should result in the denervation of the bilateral L4/5 and L5/S1 facets. We would expect to denervate a total of 4 facets during the radiofrequency ablation. COMMENTS: patient tolerated procedure well. Pre-procedure pain is 6/10. Post procedure pain is 5/10 on the right side and 0/10 on the left side. I personally performed the entire procedure. Emma Torres MD Pain Management CC: Vanessa Lewis
--- NOTE | 2020-04-28 11:46 | DI.RAD_ITS ---
EXAM: XR PAIN CLINIC LUMBAR SP 2V CLINICAL HISTORY: Dx:Lumbar Spondylosis TECHNIQUE: 2D and realtime digital imaging was performed. Fluoroscopy was provided in the OR COMPARISON: No exams were available for comparison FINDINGS: C-arm fluoroscopy utilized by Dr. Torres during bilateral reported lumbar medial branch block. Hard copi es show needle placement bilaterally overlying the pedicles of what appear to be L4 and L5. Fluoro time 60.9 seconds RADIATION DOSE DELIVERED: Total DLP
[2020-04-28 11:52] VITALS: BP 121/82; PULSE 68; RESP 17; O2SAT 97
[2020-04-28] MEDS: Lidocaine 2% Pres-Free 5 ML VIAL IJ (11:54)
[2020-04-28] MEDS: Omnipaque 240 MG/ML 50 ML BTL IJ (11:54)
== END 2020-04-28 11:02 ==
PROVIDERS: PCP Family Medicine; Visit Provider Internal Medicine
DX: M47.816 Spondylosis without myelopathy or radiculopathy, lumbar region (principal)
CPT/HCPCS: 64493; 64494; 72100; Q9967

== ENCOUNTER 2020-05-05 13:17 | Outpatient (CLI) | payer MEDICARE, MEDICAID, OTHER, SELFPAY ==
--- NOTE | 2020-05-05 06:00 | DI.RAD_ITS ---
EXAM: XR PAIN CLINIC LUMBAR SP 2V CLINICAL HISTORY: Dx: Lumbar Spondylosis TECHNIQUE: 2D and realtime digital imaging was performed. CONTRAST MATERIAL: Refer to procedure report. COMPARISON: No exams were available for comparison FINDINGS: Fluoroscopy was provided for Dr. Torres during the performance of a lumbar radiofrequency ablation. Ple ase refer to the procedure report for complete details. Fluoro time: 85.4 seconds IMPRESSION:
[2020-05-05 13:30] VITALS: BP 85/59; PULSE 92; RESP 18; TEMP 36.5; O2SAT 94
--- NOTE | 2020-05-05 13:34 | PDOC.PAIN_ITS ---
Pain Clinic Procedure Note Procedure Note Procedure Note: Bilateral Lumbar Radiofrequency with Coolief Machine PROCEDURE NOTE Date of Service: May 05, 2020 Patient: EUGENE,PITO Mackay Provider: Emma Torres MD Pre Operative Diagnosis: lumbar spondylosis Post Operative Diagnosis: same as above PROCEDURE: Radiofrequency Ablation of medial branches - Bilateral L3, L4, L5-DR PITO Mackay EUGENE was brought into the fluoroscopy suite and positioned into the prone position on the fluoroscopy table and allowed to adjust to a position of comfort. A grounding pad was placed on the left thigh. The lumbar region was widely prepped with a chloraprep solution, allowed to air dry and draped in standard sterile surgical fashion. Local anesthesia was provided by 20 mL of 1% Lidocaine delivered with a 25g needle. A 17g 100mm radiofrequency introducer needle was placed to the planned anatomic targets guided with intermittent fluoroscopy with a perpendicular approach to terminally place at the junction of the superior articular process and the transverse process of the bilateral L3, L4 and the base of the sacral ala bilaterally targetting for the L5 medial branch nerve. The stylets were removed and radiofrequency probes with a 4mm active tip were then inserted. Needle tip position of the probes was verified in the AP, oblique, and lateral views. At each site, the medial branch nerve was stimulated at 2 Hz to a maximum 1-2 volts determined to finalize safe needle and electrode placement. The patient was a wake and responsive during this portion of the procedure. Each target was anesthetized with 1mL of 2% Lidocaine for anesthesia for lesioning and then each target was lesioned at 80 degrees Celsius for 2 minutes and 30 seconds. Tissue impedences were noted to be between 250 and 500 Ohms. Electrodes and needles were then removed and bandages placed over the needle placement sites, the patient then returned to the supine position on a stretcher and transported to the recovery room without hemodynamic, neurologic, or allergic reactions. Fluoroscopic images were printed for hard copy recording and digitally archived. POST PROCEDURE EVALUATION: IMPRESSION: 1. During medial branch nerve stimulation at 2Hz, there was clear multifus muscle stimulation, no visible myotomal stimulation down either lower extremities. patient also denies any paresthesia down either lower extremity. However, within 30 minutes of radiofrequency treatment, patient reports pain down front of her leg to her knees. RF immediately stopped and needle was repositioned. Retested, and re-lesioned. No issue. 2. Patient received 1mg of IV versed and 75mcg of IV Fentanyl 3. Estimated Blood Loss: minimal, less than 3cc 4. Post-procedure pain level 1 out of 10 5. 40mg of depomedrol mixed with 2cc of preservative free 0.5% Bupivocaine was used to prevent post-RF neuritis Follow up plans and appointments were discussed with the PITO . Post procedure instruction was given as documented in nursing documentation and having met discharge criteria, PITO was discharged from the [facility]. COMMENTS: No complications. F/U with our office as needed. I personally performed this entire procedure. Emma Torres MD Attending Physician
[2020-05-05] MEDS: Lactated Ringers 1,000 ML 80 ML IV (14:05)
[2020-05-05] MEDS: Midazolam 2 MG/2 ML VIAL IVP (14:12)
[2020-05-05] MEDS: fentaNYL 100 MCG/2 ML VIAL IVP ×3 (14:12→14:47)
[2020-05-05 15:00] VITALS: BP 116/75; PULSE 73; RESP 16; O2SAT 95
[2020-05-05] MEDS: Lidocaine 1% Pres-Free 30 ML VIAL IJ (15:20)
[2020-05-05] MEDS: Lidocaine 2% Pres-Free 5 ML VIAL IJ (15:21)
[2020-05-05] MEDS: methylPREDNISolone ACETATE 40 MG/ML VIAL IJ (15:21)
[2020-05-05] MEDS: Bupivacaine 0.5% Pres-Free 10 ML VIAL IJ (15:21)
== END 2020-05-05 13:37 ==
PROVIDERS: PCP Family Medicine; Visit Provider Internal Medicine
DX: M47.816 Spondylosis without myelopathy or radiculopathy, lumbar region (principal)
CPT/HCPCS: 64635; 64636; 72100; J1030; J2250; J3010

== ENCOUNTER 2020-05-26 10:59 | Emergency (ER) | payer MEDICARE, MEDICAID, OTHER, SELFPAY ==
[2020-05-26 11:03] VITALS: BP 119/87; PULSE 101; RESP 20; TEMP 36.7; O2SAT 97
--- NOTE | 2020-05-26 11:38 | ED.GENADUL_ITS ---
Discharge Plan Disposition Patient Disposition: HOME Condition: Stable Discharge Details Chief Complaint: Orthopedic Clinical Impression: Knee pain Primary Care Provider: Vanessa Lewis ED Provider: Alban Crawford Home Meds and New Rx's Prescriptions: Continued Mirena 20 mcg/24 hours (5 yrs) 52 mg intrauterine device 1 device IY ONCE RF: 0 Botox 100 UNIT recon soln 0 IJ .[id number] RF: 0 lidocaine 5 % Adhesive Patch,Medicated 1 patch TOPICAL DAILY RF: 0 acetaminophen 325 mg Tablet 650 mg PO QID PRNRF: 0 sertraline 100 mg Tablet 200 mg PO HS RF: 0 levothyroxine 75 mcg Tablet 75 mcg PO DAILY RF: 0 metoprolol succinate 25 mg Tablet Extended Release 24 Hr 12.5 mg PO DAILY RF: 0 pantoprazole 40 MG tablet,delayed release (DR/EC) 40 mg PO DAILY RF: 0 albuterol sulfate 90 mcg/actuation aerosol powdr breath activated 2 inh IH Q6H PRN (Reason: shortness of breath or wheezing) Qty: 1 RF: 0 spironolactone 25 MG tablet 12.5 mg PO DAILY RF: 0 lisinopril 2.5 MG tablet 2.5 mg PO DAILY RF: 0 aspirin 81 MG tablet,delayed release (DR/EC) 81 mg PO DAILY RF: 0 rosuvastatin [Crestor] 40 MG tablet 40 mg PO HS RF: 0 albuterol sulfate 2.5 mg /3 mL (0.083 %) solution for nebulization 2.5 mg IH QID PRN (Reason: shortness of breath or wheezing) Qty: 90 RF: 0 Discharge Instructions Instructions: Knee Pain (ED) Additional Instructions: X-ray does not reveal any obvious bony abnormality. I recommend that she continue with [id number] Tylenol but be sure to minimize your use of anti- inflammatories with your history of gastric ulcer. Wear Jose Alejandro wrap and use crutches as needed, advance activity as tolerated. Rest, elevate, cool compresses every 2 hours for 20 minutes. Please watch for new or worsening symptoms and return to the ER for any concerns. You recommend that you follow- up with your primary care provider in the next week, if symptoms persist an outpatient referral to orthopedics, physical therapy, MRI may be indicated. Medical Decision Making 49-year-old female who presents to the ER for right knee pain that began 4 days ago when she struck it against a table. Denies any other injury. Denies numbness, tingling, weakness. She has diffuse discomfort at the site of injury however there is no erythema, ecchymosis, swelling. Knee has full range of motion and is stable. Given the mechanism, likely contusion will obtain x-ray to rule any bony involvement. X-ray unremarkable as read by me and confirmed through radiology. Discussed treatment options. Patient will have her knee wrapped with an Jose Alejandro wrap and crutches, weightbearing as tolerated. Recommend elevation, cool compresses and [id number] Tylenol. Will recommend that she follows up either with her primary care provider or with an orthopedic as an outpatient for reevaluation and potential of physical therapy and/or MRI. Patient has no additional questions or concerns and is comfortable with this plan Medical Records Medical records reviewed: Yes I reviewed the patient's medical records. HPI General Mode of arrival: ambulatory . Date/Time Provider Initiated Documentation: 05/26/20 11:00 . Limitations to Documentation: no limitations . Information obtained by: patient . HPI Narrative: 49-year-old female with history of ADHD, alcohol abuse, CAD, gastric ulcer, hyperlipidemia, hypothyr oidism, PTSD, STEMI, smoker, presents complaining of right knee pain. She reports that 4 days ago she directly struck her right knee on the edge of a table while running. She reports pain at the site of the injury but denies any numbness, tingling, weakness or other injury. She is able to bear weight. She denies any previous injury to that knee. She reports the pain is moderate at rest worse with movement or bearing weight. She has been taking some [id number] medications with minimal relief. Related Data Home Medications Medication Instructions Recorded Confirmed Botox 0 IJ .[id number] vial 07/27/16 03/17/20 lisinopril 2.5 mg PO DAILY 02/08/17 05/26/20 spironolactone 12.5 mg PO DAILY 02/08/17 05/26/20 aspirin 81 mg PO DAILY tabec 02/09/17 05/26/20 rosuvastatin [Crestor] 40 mg PO HS 08/28/17 05/26/20 lidocaine 1 patch TOPICAL DAILY 02/07/19 05/26/20 levonorgestrel 20 mcg/24 hours (5 1 device IY ONCE 11/18/19 07/21/20 yrs) 52 mg intrauterine device acetaminophen 650 mg PO QID PRN 11/21/19 05/26/20 levothyroxine 75 mcg PO DAILY 11/21/19 05/26/20 metoprolol succinate 12.5 mg PO DAILY 11/21/19 05/26/20 pantoprazole 40 mg PO DAILY 11/21/19 05/26/20 sertraline 200 mg PO HS 11/21/19 05/26/20 albuterol sulfate 2.5 mg IH QID PRN #90 ml 12/10/19 05/26/20 albuterol sulfate 2 inh IH Q6H PRN #1 each 01/23/20 05/26/20 Previous Rx's Medication Instructions Recorded aspirin 81 mg PO DAILY tabec 02/09/17 albuterol sulfate 2.5 mg IH QID PRN #90 ml 12/10/19 albuterol sulfate 2 inh IH Q6H PRN #1 each 01/23/20 Allergies Allergy/AdvReac Type Severity Reaction Status Date / Time bupropion [From Wellbutrin] Allergy Unknown Unverified 05/26/20 11:08 sulfamethoxazole Allergy Unknown Unverified 05/26/20 11:08 [From Bactrim] trimethoprim [From Bactrim] Allergy Unknown Unverified 05/26/20 11:08 venlafaxine Allergy Unknown Unverified 05/26/20 11:08 fluconazole [From Diflucan] AdvReac Intermediate chest Verified 05/26/20 11:08 tightness General Stated Complaint: Orthopedic ROHITH: 4 Review of Systems Constitutional Constitutional: Denies fever(s) and Denies weakness Cardiovascular Cardiovascular: Denies chest pain and Denies dyspnea Respiratory Respiratory: Denies cough and Denies dyspnea Musculoskeletal Musculoskeletal: Reports arthralgias, Denies numbness and Denies tingling Integumentary/Breasts Skin/Breast: Denies rash Neurologic Neurologic: Denies numbness, Denies tingling and Denies weakness [facility] Medical History ADHD (Acute) Alcohol abuse DWIx4. currently without Drivers License. Taking Naltrexone since 02/2015. No relapses. CAD (coronary atherosclerotic disease) (Acute) s/p anterior STEMI 01/2017. CT to LAD,OM2 and RCA Encounter for removal and reinsertion of IUD (Acute) Gastric ulcer with perforation Hx of . H/O: menorrhagia treated with Depo Provera since 2004 Hx of dysmenorrhea controlled with DepoProvera since 2004. Is contemplating Mirena IUD. Hyperlipemia (Acute) Hypothyroid Pneumonia 2013 - hospitalized at [facility]. PTSD (post-traumatic stress disorder) (Acute) STEMI (ST elevation myocardial infarction) (Acute) Tobacco use Surgical History H/O heart artery stent (Chronic) H/O hernia repair (Chronic) S/P rotator cuff repair (Acute) Social History Smoking/Tobacco Use Status: Current every day Tobacco Type: cigarettes Smoking packs per day: 0.5 Smoking cigarettes per day: 10.0 Alcohol Intake: current Alcohol Intake frequency: holidays/special occasions only Alcohol type: beer Details: Hx of DWI. Naloxone Rx followed by absitence. Drug use: Occasionally Substance use type: marijuana Household members: spouse and other Details: Marie. halfway partner Number of Children: 0 Education Level: other Details: taking online classes for computer repair current occupation: Medical disability from [employer] Sexually active: Yes Do you think of yourself as: lesbian/esqueda/homosexual Do you feel safe at home: Yes Do you feel safe in your relationship?: Yes Exam Const General: cooperative, healthy appearing, comfortable and no acute distress Orientation: alert and awake [facility] Head: normal to inspection, normocephalic and atraumatic Mouth: moist mucous membranes Eyes Conjunctivae: conjunctivae normal Neck Neck: normal visual inspection, trachea midline and supple Resp Effort & Inspection: normal respiratory effort and able to speak in complete sentences Cardio Rate: regular rate Rhythm: regular rhythm Skin General skin exam: no rashes or lesions noted Neuro General: patient alert, patient awake, moves all extremities and no focal motor deficits Gait: normal gait Motor: muscle tone normal throughout and strength 5/5 throughout Sensory Exam: no sensory deficits noted Extrem Right lower extremity: normal to inspection, full ROM, normal capillary refill and knee Details: normal to inspection, tenderness (Diffuse lateral aspect), normal ROM and knee ligament exam normal; no swelling and no ecchymosis Psych Appearance: grossly normal Mental Status: mental status grossly normal Course Vital Signs Vital signs: Vital Signs Temperature 36.7 C 05/26/20 11:03 Pulse 101 H 05/26/20 11:03 Respiratory Rate 05/26/20 11:03 Blood Pressure 119/87 05/26/20 11:03 Pulse Oximetry 97 05/26/20 11:03 Temperature 36.7 C 05/26/20 11:03 Temperature Source Temporal Artery Scan 05/26/20 11:03 Pulse 101 H 05/26/20 11:03 Respiratory Rate 05/26/20 11:03 Respiratory Effort Non-Labored 05/26/20 11:07 Blood Pressure 119/87 05/26/20 11:03 Blood Pressure Position Sitting 05/26/20 11:03 Pulse Oximetry 97 05/26/20 11:03 Oxygen Delivery Method Room Air 05/26/20 11:03 Oxygen Flow Rate 0 05/26/20 11:03 Pain Level 10 05/26/20 11:16
--- NOTE | 2020-05-26 11:40 | DI.RAD_ITS ---
EXAM: XR KNEE RT 4V+ CLINICAL HISTORY: Direct blow, ran into a coffee table. TECHNIQUE: 2D digital imaging was performed. COMPARISON: No exams were available for comparison FINDINGS: BONES: No acute fracture is present. No bony destructive lesion is seen. JOINTS: The knee is normally aligned. No joint effusion is seen. SOFT TISSUE: Vascular calcifications. IMPRESSION: No acute fracture or dislocation. DATA REPOSITORY: RADIATION DOSE DELIVERED:
[2020-05-26 12:10] VITALS: BP 118/84; PULSE 81; RESP 20; TEMP 36.8; O2SAT 97
== END 2020-05-26 12:17 | disposition home or self-care (01) ==
PROVIDERS: Emergency Provider Physician Assistant; PCP Family Medicine
DX: M25.561 Pain in right knee (principal); W22.03XA Walked into furniture, initial encounter
CPT/HCPCS: 99283; 73564; E0114

== ENCOUNTER 2020-06-04 20:06 | Emergency (ER) | payer MEDICARE, MEDICAID, OTHER, SELFPAY ==
[2020-06-04 20:10] VITALS: BP 120/73; PULSE 88; RESP 20; TEMP 37; O2SAT 97
--- NOTE | 2020-06-04 20:23 | W.ED.GENAD ---
Discharge Plan Disposition Patient Disposition: HOME Condition: Good Discharge Details Chief Complaint: Orthopedic Clinical Impression: Ankle sprain Primary Care Provider: Vanessa Lewis ED Provider: Siri Gutierrez Home Meds and New Rx's Prescriptions: Continued Mirena 20 mcg/24 hours (5 yrs) 52 mg intrauterine device 1 device IY ONCE RF: 0 Botox 100 UNIT recon soln 0 unit IJ .[id number] RF: 0 lidocaine 5 % Adhesive Patch,Medicated 1 patch TOPICAL DAILY RF: 0 acetaminophen 325 mg Tablet 650 mg PO QID PRNRF: 0 sertraline 100 mg Tablet 200 mg PO HS RF: 0 levothyroxine 75 mcg Tablet 75 mcg PO DAILY RF: 0 metoprolol succinate 25 mg Tablet Extended Release 24 Hr 12.5 mg PO DAILY RF: 0 pantoprazole 40 MG tablet,delayed release (DR/EC) 40 mg PO DAILY RF: 0 albuterol sulfate 90 mcg/actuation aerosol powdr breath activated 2 inh IH Q6H PRN (Reason: shortness of breath or wheezing) Qty: 1 RF: 0 spironolactone 25 MG tablet 12.5 mg PO DAILY RF: 0 lisinopril 2.5 MG tablet 2.5 mg PO DAILY RF: 0 aspirin 81 MG tablet,delayed release (DR/EC) 81 mg PO DAILY RF: 0 rosuvastatin [Crestor] 40 MG tablet 40 mg PO HS RF: 0 albuterol sulfate 2.5 mg /3 mL (0.083 %) solution for nebulization 2.5 mg IH QID PRN (Reason: shortness of breath or wheezing) Qty: 90 RF: 0 Discharge Instructions Instructions: Ankle Sprain (ED) Additional Instructions: Your imaging is reassuring for no acute fracture today. Encourage rest, ice, elevation. Tylenol and/or Ibuprofen as needed for discomfort. Please continue with brace until reevaluated by primary care. Please follow-up with primary care in the next 1 to 2 weeks. If you develop new or worsening symptoms please seek care urgently once again. Referrals: Vanessa Lewis [Primary Care Provider] - Discharge Data Discharge Date/Time-TO BE ENTERED AT DEPARTURE: 06/04/20 21:25 Medical Decision Making Patient is a pleasant 49-year-old female presented to complaint of left ankle and foot pain. She reports that last night, while playing [employer] go, she stepped in a hole and suffered a hyper extension and internal rotational injury. States that she immediately noted swelling and ecchymosis to the lateral ankle. No previous fracture or injury to this area. She denies other injury at the time of the incident. Since that time, she has noted spreading of the ecchymosis and swelling. States that she has had discomfort. Has been ambulatory but has needed to walk with an antalgic gait. She denies any numbness or tingling. No break in the skin. On exam, patient is resting comfortably. She did ambulate into the department with antalgic gait. Patient was offered a wheelchair and declined. Patient has ecchymosis and swelling as noted above. Neurovascularly intact. No pain over the proximal fibula. No pain over the proximal fifth metatarsal. Pain is maximal over the medial and lateral malleoli. She also has some discomfort in the dorsal lateral foot. No deformity, no palpable defect noted. Plan for imaging. FINDINGS: Bones/joints: No fractures. Chronic appearing changes in the distal 1st metatarsal suggest remote prior healed fracture or possibly remote prior osteotomy and bunionectomy with solid bony union. Normal alignment is maintained in the midfoot, hindfoot, and forefoot. Mild degenerative joint space narrowing with slight lateral spurring in the first MTP joint. No blastic or lytic lesions. No periostitis or osteolysis. No gross ankle joint effusion. No hindfoot coalition. Soft tissues: Moderate lateral soft tissue swelling at the ankle. No radiopaque foreign bodies. Other findings: Normal mineralization. IMPRESSION: 1. No acute osseous abnormalities. 2. Chronic changes in the distal 1st metatarsal which may relate to remote prior fracture or remote prior osteotomy and bunionectomy. Minor degenerative changes in the 1st MTP joint. 3. Moderate lateral soft tissue swelling at the ankle. FINDINGS: Bones/joints: No acute fractures are identified. Question mild chronic appearing contour irregularity in the distal metaphysis of the fibula suspicious for old healed fracture. No blastic or lytic lesions. No periostitis or osteolysis. The ankle mortise joint is well maintained. Possible small joint effusion in the ankle mortise joint with slight distention of the anterior recess on the lateral view. No hindfoot coalition. Soft tissues: Moderate lateral soft tissue swelling at the ankle.. No radiopaque foreign bodies. Other findings: The visualized hindfoot and midfoot are grossly well aligned. IMPRESSION: 1. No acute fracture or dislocation. 2. Moderate lateral soft tissue swelling. 3. Suspect small ankle joint effusion. Discussed this findings with the patient. While she reports that she has sprained this ankle multiple times, she was unaware of any previous fractures. Will place in a lace up ankle brace. Encourage rest, ice, elevation. Tylenol and ibuprofen as needed for discomfort. She will follow-up with primary care in 1 to 2 weeks for reevaluation. She was given return precautions. All of her questions and concerns were addressed and she is agreement this plan. [facility] General Mode of arrival: ambulatory. Date/Time Provider Initiated Documentation: 06/04/20 20:22. Limitations to Documentation: no limitations. Information obtained by: patient and RN notes reviewed. History of Present Illness 49 year old F presents to the emergency department with the chief complaint of left foot and ankle pain, described as severe, with intensity rated at 10. Quality is described as aching, and is localized to the left and lower extremity. Patient reports no radiation. Patient started experiencing this day(s) (1) and it has been constant. Immobilization improves symptom(s), Movement worsens symptoms . Patient notes no other symptoms.. Patient did receive the following treatments prior to arrival, none Related Data Home Medications Medication Instructions Recorded Confirmed Botox 0 unit IJ .[id number] vial 07/27/16 06/04/20 lisinopril 2.5 mg PO DAILY 02/08/17 06/04/20 spironolactone 12.5 mg PO DAILY 02/08/17 06/04/20 aspirin 81 mg PO DAILY tabec 02/09/17 06/04/20 rosuvastatin [Crestor] 40 mg PO HS 08/28/17 06/04/20 lidocaine 1 patch TOPICAL DAILY 02/07/19 06/04/20 levonorgestrel 20 mcg/24 hours (5 1 device IY ONCE 09/23/19 06/04/20 yrs) 52 mg intrauterine device acetaminophen 650 mg PO QID PRN 11/21/19 06/04/20 levothyroxine 75 mcg PO DAILY 11/21/19 06/04/20 metoprolol succinate 12.5 mg PO DAILY 11/21/19 06/04/20 pantoprazole 40 mg PO DAILY 11/21/19 06/04/20 sertraline 200 mg PO HS 11/21/19 06/04/20 albuterol sulfate 2.5 mg IH QID PRN #90 ml 12/10/19 06/04/20 albuterol sulfate 2 inh IH Q6H PRN #1 each 01/23/20 06/04/20 Previous Rx's Medication Instructions Recorded aspirin 81 mg PO DAILY tabec 02/09/17 albuterol sulfate 2.5 mg IH QID PRN #90 ml 12/10/19 albuterol sulfate 2 inh IH Q6H PRN #1 each 01/23/20 Allergies Allergy/AdvReac Type Severity Reaction Status Date / Time bupropion [From Wellbutrin] Allergy Unknown Unverified 06/04/20 20:17 sulfamethoxazole Allergy Unknown Unverified 06/04/20 20:17 [From Bactrim] trimethoprim [From Bactrim] Allergy Unknown Unverified 06/04/20 20:17 venlafaxine Allergy Unknown Unverified 06/04/20 20:17 fluconazole [From Diflucan] AdvReac Intermediate chest Verified 06/04/20 20:17 tightness General Stated Complaint: Orthopedic ROHITH: 4 Review of Systems Constitutional Constitutional: Reports as per HPI, Denies chills, Denies fever(s), Denies headache(s) and Denies weakness ENT Ears, Nose, Mouth, and Throat: Denies headache(s) Cardiovascular Cardiovascular: Reports as per HPI Respiratory Respiratory: Reports as per HPI and Denies cough Musculoskeletal Musculoskeletal: Reports as per HPI and Denies tingling Integumentary/Breasts Skin/Breast: Reports as per HPI, Denies rash and Denies wounds Neurologic Neurologic: Reports as per HPI, Denies headache(s), Denies tingling, Denies paresthesias and Denies weakness [facility] Medical History ADHD (Acute) Alcohol abuse DWIx4. currently without Drivers License. Taking Naltrexone since 02/2015. No relapses. CAD (coronary atherosclerotic disease) (Acute) s/p anterior STEMI 01/2017. CT to LAD,OM2 and RCA Encounter for removal and reinsertion of IUD (Acute) Gastric ulcer with perforation Hx of . H/O: menorrhagia treated with Depo Provera since 2004 Hx of dysmenorrhea controlled with DepoProvera since 2004. Is contemplating Mirena IUD. Hyperlipemia (Acute) Hypothyroid Pneumonia 2013 - hospitalized at [facility]. PTSD (post-traumatic stress disorder) (Acute) STEMI (ST elevation myocardial infarction) (Acute) Tobacco use Surgical History H/O heart artery stent (Chronic) H/O hernia repair (Chronic) S/P rotator cuff repair (Acute) Social History Smoking/Tobacco Use Status: Current every day Tobacco Type: cigarettes Smoking packs per day: 1 Smoking cigarettes per day: 20.0 Alcohol Intake: current Alcohol Intake frequency: holidays/special occasions only Alcohol type: beer Details: Hx of DWI. Naloxone Rx followed by absitence. 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 Number of Children: 0 Education Level: other Details: taking online classes for computer repair current occupation: Medical disability from [employer] Sexually active: Yes Do you think of yourself as: lesbian/esqueda/homosexual Do you feel safe at home: Yes Do you feel safe in your relationship?: Yes Exam Const General: cooperative, healthy appearing, comfortable, no acute distress, well developed and well groomed Nutritional Appearance: average body habitus and well nourished Orientation: alert and awake Resp Effort & Inspection: normal respiratory effort, able to speak in complete sentences and no respiratory distress Cardio Rate: regular rate Rhythm: regular rhythm Skin General skin exam: ecchymosis (as below) Neuro General: patient alert and patient awake Cognition: normal cognition Speech: speech normal Gait: antalgic Motor: muscle tone normal throughout Sensory Exam: no sensory deficits noted Extrem Left lower extremity: normal capillary refill, knee Details: normal to inspection and normal ROM; no tenderness (no pain over proximal fibula), no deformity and no unusual warmth, lower leg Details: normal to inspection; no erythema, no tenderness, no localized swelling, no palpable cords, no abrasions, no lacerations, no ecchymosis, no crepitus and no deformity, ankle Details: abnormal to inspection (swelling and ecchymosis laterally,no deformity noted), tenderness Location: of the lateral malleolus, of the medial malleolus and of the anterior talofibular ligament; not of the achilles tendon, not anteromedially, not posteriorly and not anteriorly, swelling and ecchymosis (as drawn below); ROM abnormal (limited secondary to pain), no warmth, no abrasions, no lacerations, no crepitus, no foreign bodies and achilles tendon exam normal and foot Details: normal capillary refill, abnormal to inspection (ecchymosis and swelling as drawn below), tenderness Location: of the dorsal foot (pain spares the 5th metatarsal) Location: laterally, toes with normal ROM, no edema, ecchymosis, vascular exam Details: dorsalis pedis pulse present and normal capillary refill and motor-sensory exam Details: light-touch normal; no unusual warmth, no abrasions, no crepitus, no foreign bodies and no puncture wound; abnormal to inspection and abnormal ROM Ankle/foot/toe images: 1. area of ecchymosis and swelling Psych Appearance: grossly normal and well kempt Mental Status: mental status grossly normal Speech and Movement: speech and movement normal Course Vital Signs Vital signs: Vital Signs Temperature 37.0 C 06/04/20 20:10 Pulse 88 06/04/20 20:10 Respiratory Rate 20 06/04/20 20:10 Blood Pressure 120/73 06/04/20 20:10 Pulse Oximetry 97 06/04/20 20:10 Temperature 37.0 C 06/04/20 20:10 Temperature Source Tympanic 06/04/20 20:10 Pulse 88 06/04/20 20:10 Respiratory Rate 20 06/04/20 20:10 Respiratory Effort 06/04/20 20:18 Blood Pressure 120/73 06/04/20 20:10 Pulse Oximetry 97 06/04/20 20:10 Oxygen Delivery Method Room Air 06/04/20 20:10 Oxygen Flow Rate 0 06/04/20 20:10 Pain Level 06/04/20 20:18
--- NOTE | 2020-06-04 21:06 | DI.RAD_ITS ---
EXAM: XR ANKLE LT COMPLETE CLINICAL HISTORY: rotational injury TECHNIQUE: 2D digital imaging was performed. COMPARISON: No exams were available for comparison FINDINGS: There is soft tissue swelling around the malleoli, greater laterally. No fracture or ankle mortise widening is seen. There is no talar dome defect. There is spurring from both malleoli. IMPRESSION: Soft tissue swelling. No acute bony abnormality.
--- NOTE | 2020-06-04 21:06 | DI.RAD_ITS ---
EXAM: XR FOOT LT COMPLETE CLINICAL HISTORY: rotational injury. TECHNIQUE: 2D digital imaging was performed. COMPARISON: No exams were available for comparison FINDINGS: BONES: No acute fracture is present. No bony destructive lesion is seen. There are degenerative martinez es at the 1st MTP joint and question of prior bunionectomy surgery. JOINTS: No dislocation present. SOFT TISSUE: Normal. IMPRESSION: No acute abnormality. DATA REPOSITORY: RADIATION DOSE DELIVERED:
--- NOTE | 2020-06-04 21:10 | DI.VRAD_ITS ---
PROCEDURE INFORMATION: Exam: XR Left Foot Complete Exam date and time: 06/04/2020 8:52 PM Age: 49 years old Clinical indication: Injury or trauma; Injury history: Inversion injury yesterday; Initial encounter; Swelling (edema); Left; Injury date: 06/03/20; Injury details: Running, rolled/twisted ankle TECHNIQUE: Imaging protocol: XR Left foot. Views: 3 or more views. COMPARISON: No relevant prior studies available. FINDINGS: Bones/joints: No fractures. Chronic appearing changes in the distal 1st metatarsal suggest remote prior healed fracture or possibly remote prior osteotomy and bunionectomy with solid bony union. Normal alignment is maintained in the midfoot, hindfoot, and forefoot. Mild degenerative joint space narrowing with slight lateral spurring in the first MTP joint. No blastic or lytic lesions. No periostitis or osteolysis. No gross ankle joint effusion. No hindfoot coalition. Soft tissues: Moderate lateral soft tissue swelling at the ankle. No radiopaque foreign bodies. Other findings: Normal mineralization. IMPRESSION: 1. No acute osseous abnormalities. 2. Chronic changes in the distal 1st metatarsal which may relate to remote prior fracture or remote prior osteotomy and bunionectomy. Minor degenerative changes in the 1st MTP joint. 3. Moderate lateral soft tissue swelling at the ankle. Dictated and Authenticated by: Nils Burdick MD. Ordering:GRIFFIN Horner MD
--- NOTE | 2020-06-04 21:12 | DI.VRAD_ITS ---
PROCEDURE INFORMATION: Exam: XR Left Ankle Exam date and time: 06/04/2020 8:50 PM Age: 49 years old Clinical indication: Injury or trauma; Injury history: Inversion injury; Initial encounter; Swelling (edema); Left; Injury date: 06/03/20; Injury details: Rolled/twisted/inverted ankle while running yesterday TECHNIQUE: Imaging protocol: XR Left ankle. Views: 3 or more views. COMPARISON: No relevant prior studies available. FINDINGS: Bones/joints: No acute fractures are identified. Question mild chronic appearing contour irregularity in the distal metaphysis of the fibula suspicious for old healed fracture. No blastic or lytic lesions. No periostitis or osteolysis. The ankle mortise joint is well maintained. Possible small joint effusion in the ankle mortise joint with slight distention of the anterior recess on the lateral view. No hindfoot coalition. Soft tissues: Moderate lateral soft tissue swelling at the ankle.. No radiopaque foreign bodies. Other findings: The visualized hindfoot and midfoot are grossly well aligned. IMPRESSION: 1. No acute fracture or dislocation. 2. Moderate lateral soft tissue swelling. 3. Suspect small ankle joint effusion. Dictated and Authenticated by: Nils Burdick MD. Ordering:GRIFFIN Horner MD
== END 2020-06-04 21:25 | disposition home or self-care (01) ==
PROVIDERS: Emergency Provider Physician Assistant; PCP Family Medicine
DX: S93.402A Sprain of unspecified ligament of left ankle, initial encounter (principal); W17.2XXA Fall into hole, initial encounter; X50.9XXA Other and unspecified overexertion or strenuous movements or postures, initial encounter
CPT/HCPCS: 99284; 73610; 73630; 99283; L1902

== ENCOUNTER 2020-06-15 19:44 | Emergency (ER) | payer MEDICARE, MEDICAID, OTHER, SELFPAY ==
[2020-06-15 19:49] VITALS: BP 101/59; PULSE 105; RESP 17; TEMP 37.6; O2SAT 98
--- NOTE | 2020-06-15 20:05 | ED.GENADUL_ITS ---
Discharge Plan Disposition Patient Disposition: HOME Condition: Good Discharge Details Chief Complaint: Orthopedic Clinical Impression: Knee pain, Effusion of knee Primary Care Provider: Vanessa Lewis ED Provider: Siri Gutierrez Home Meds and New Rx's Prescriptions: Continued Mirena 20 mcg/24 hours (5 yrs) 52 mg intrauterine device 1 device IY ONCE RF: 0 Botox 100 UNIT recon soln 0 unit IJ .[id number] RF: 0 lidocaine 5 % Adhesive Patch,Medicated 1 patch TOPICAL DAILY RF: 0 acetaminophen 325 mg Tablet 650 mg PO QID PRNRF: 0 sertraline 100 mg Tablet 200 mg PO HS RF: 0 levothyroxine 75 mcg Tablet 75 mcg PO DAILY RF: 0 metoprolol succinate 25 mg Tablet Extended Release 24 Hr 12.5 mg PO DAILY RF: 0 pantoprazole 40 MG tablet,delayed release (DR/EC) 40 mg PO DAILY RF: 0 albuterol sulfate 90 mcg/actuation aerosol powdr breath activated 2 inh IH Q6H PRN (Reason: shortness of breath or wheezing) Qty: 1 RF: 0 spironolactone 25 MG tablet 12.5 mg PO DAILY RF: 0 lisinopril 2.5 MG tablet 2.5 mg PO DAILY RF: 0 aspirin 81 MG tablet,delayed release (DR/EC) 81 mg PO DAILY RF: 0 rosuvastatin [Crestor] 40 MG tablet 40 mg PO HS RF: 0 albuterol sulfate 2.5 mg /3 mL (0.083 %) solution for nebulization 2.5 mg IH QID PRN (Reason: shortness of breath or wheezing) Qty: 90 RF: 0 Discharge Instructions Instructions: Knee Pain (ED) Additional Instructions: You do have a knee effusion. I am concerned for potential meniscus injury. Please keep your upcoming appointment with orthopedics. In the interim, please encourage rest, ice, elevation. Tylenol and/or ibuprofen as needed for discomfort. Please continue with the knee brace to stabilize knee. Over time, this should help with swelling. If he develop fever/chills, increased pain or other new/worsening symptom please seek care urgently once again. If you are unable to tolerate persistent symptoms please contact her primary care. Referrals: Vanessa Lewis [Primary Care Provider] - Kenrick Ludwig MD [ [facility] STAFF PHYSICIAN] - Medical Decision Making Patient is a pleasant 50-year-old female presents with chief complaint of persistent right knee pain. She reports that she was seen here on 05/26/2020 after striking her knee against a table. At that time, x-rays were obtained and found to be without significant abnormality. She states that since that time she has had persistent discomfort, particularly rotational movements. She endorses clicking and catching in the leg. Has noted swelling. States is particularly worse after working as she is on her feet for some period of time during the day. She denies any numbness or tingling. No recurrent injury. No fevers or chills. On exam, patient is resting comfortably. She does have a small effusion of the right knee. She does seem to be ligament simply intact with varus vital stress testing as well as Erin exam. She is unable to tolerate forced flexion but does have increased discomfort with rotation but again along the lateral aspect of the joint line. Lateral joint line tenderness with palpation. Primarily concern at this time for meniscal injury. I discussed this with the patient. She had initially been discharged with an Jose Alejandro wrap and crutches but has not been using these. I did advise that a stabilizing brace may be of benefit. She does have a follow-up appointment scheduled with orthopedics in a few weeks. She is on a waiting list. All of her questions and concerns were addressed, she is in agreement with this plan. [facility] General Mode of arrival: ambulatory . Date/Time Provider Initiated Documentation: 06/15/20 19:50 . Limitations to Documentation: no limitations . Information obtained by: patient and RN notes reviewed . History of Present Illness 50 year old F presents to the emergency department with the chief complaint of right knee pain, described as moderate, with intensity rated at 4. Quality is described as aching, and is localized to the right and lower extremity. Patient reports no radiation. Patient started experiencing this week(s) and it has been constant. Immobilization improves symptom(s), Movement worsens symptoms . Patient notes no other symptoms.. Patient did receive the following treatments prior to arrival, none Related Data Home Medications Medication Instructions Recorded Confirmed Botox 0 unit IJ .[id number] vial 07/27/16 06/15/20 lisinopril 2.5 mg PO DAILY 02/08/17 06/15/20 spironolactone 12.5 mg PO DAILY 02/08/17 06/15/20 aspirin 81 mg PO DAILY tabec 02/09/17 06/15/20 rosuvastatin [Crestor] 40 mg PO HS 08/28/17 06/15/20 lidocaine 1 patch TOPICAL DAILY 02/07/19 06/15/20 levonorgestrel 20 mcg/24 hours (5 1 device IY ONCE 09/23/19 06/15/20 yrs) 52 mg intrauterine device acetaminophen 650 mg PO QID PRN 11/21/19 06/15/20 levothyroxine 75 mcg PO DAILY 11/21/19 06/15/20 metoprolol succinate 12.5 mg PO DAILY 11/21/19 06/15/20 pantoprazole 40 mg PO DAILY 11/21/19 06/15/20 sertraline 200 mg PO HS 11/21/19 06/15/20 albuterol sulfate 2.5 mg IH QID PRN #90 ml 12/10/19 06/15/20 albuterol sulfate 2 inh IH Q6H PRN #1 each 01/23/20 06/15/20 Previous Rx's Medication Instructions Recorded aspirin 81 mg PO DAILY tabec 02/09/17 albuterol sulfate 2.5 mg IH QID PRN #90 ml 12/10/19 albuterol sulfate 2 inh IH Q6H PRN #1 each 01/23/20 Allergies Allergy/AdvReac Type Severity Reaction Status Date / Time bupropion [From Wellbutrin] Allergy Unknown Unverified 06/15/20 19:53 sulfamethoxazole Allergy Unknown Unverified 06/15/20 19:53 [From Bactrim] trimethoprim [From Bactrim] Allergy Unknown Unverified 06/15/20 19:53 venlafaxine Allergy Unknown Unverified 06/15/20 19:53 fluconazole [From Diflucan] AdvReac Intermediate chest Verified 06/15/20 19:53 tightness General Stated Complaint: Orthopedic ROHITH: 4 Review of Systems Constitutional Constitutional: Reports as per HPI, Denies chills, Denies fever(s), Denies headache(s) and Denies weakness ENT Ears, Nose, Mouth, and Throat: Denies headache(s) Cardiovascular Cardiovascular: Reports as per HPI Respiratory Respiratory: Reports as per HPI and Denies cough Musculoskeletal Musculoskeletal: Reports as per HPI and Denies tingling Integumentary/Breasts Skin/Breast: Reports as per HPI, Denies rash and Denies wounds Neurologic Neurologic: Reports as per HPI, Denies headache(s), Denies tingling, Denies paresthesias and Denies weakness [facility] Medical History ADHD (Acute) Alcohol abuse DWIx4. currently without Drivers License. Taking Naltrexone since 02/2015. No relapses. CAD (coronary atherosclerotic disease) (Acute) s/p anterior STEMI 01/2017. CT to LAD,OM2 and RCA Encounter for removal and reinsertion of IUD (Acute) Gastric ulcer with perforation Hx of . H/O: menorrhagia treated with Depo Provera since 2004 Hx of dysmenorrhea controlled with DepoProvera since 2004. Is contemplating Mirena IUD. Hyperlipemia (Acute) Hypothyroid Pneumonia 2012 - hospitalized at [facility]. PTSD (post-traumatic stress disorder) (Acute) STEMI (ST elevation myocardial infarction) (Acute) Tobacco use Surgical History H/O heart artery stent (Chronic) H/O hernia repair (Chronic) S/P rotator cuff repair (Acute) Social History Smoking/Tobacco Use Status: Current every day Tobacco Type: cigarettes Smoking packs per day: 1 Smoking cigarettes per day: 20.0 Alcohol Intake: current Alcohol Intake frequency: holidays/special occasions only Alcohol type: beer Details: Hx of DWI. Naloxone Rx followed by absitence. Drug use: Occasionally Substance use type: marijuana Household members: spouse and other Details: Marie. detention partner Number of Children: 0 Education Level: other Details: taking online classes for computer repair current occupation: Medical disability from [employer] Sexually active: Yes Do you think of yourself as: lesbian/esqueda/homosexual Do you feel safe at home: Yes Do you feel safe in your relationship?: Yes Exam Const General: cooperative, healthy appearing, comfortable, no acute distress, well developed and well groomed Nutritional Appearance: average body habitus and well nourished Orientation: alert and awake Resp Effort & Inspection: normal respiratory effort, able to speak in complete sentences and no respiratory distress Cardio Rate: regular rate Rhythm: regular rhythm Skin General skin exam: no rashes or lesions noted Lesions: no lesions Rashes: no rashes Trauma: no lacerations or abrasions Neuro General: patient alert and patient awake Cognition: normal cognition Speech: speech normal Gait: normal gait Motor: muscle tone normal throughout Sensory Exam: no sensory deficits noted Extrem Right lower extremity: normal to inspection, normal capillary refill, hip/thigh Details: normal to inspection, knee Details: normal to inspection, tenderness Location: of the lateral joint line, swelling (small effusion), knee ligament exam normal Details: anterior drawer test normal, posterior drawer test normal, valgus stress test normal, varus stress test normal and pain with axial loading; Erin?s test abnormal and Gosia's Test Details: positive laterally; ROM abnormal (full extension, lacking 20* full flexion), no abrasions, no lacerations, no ecchymosis, no crepitus, no deformity and no unusual warmth, lower leg Details: normal to inspection and no edema; no tenderness, no localized swelling, no palpable cords, no ecchymosis and no deformity and foot Details: normal capillary refill and vascular exam Details: dorsalis pedis pulse present, posterior tibial pulse present and normal capillary refill; ROM limited Psych Appearance: grossly normal and well kempt Mental Status: mental status grossly normal Speech and Movement: speech and movement normal Course Vital Signs Vital signs: Vital Signs Temperature 37.6 C H 06/15/20 19:49 Pulse 105 H 06/15/20 19:49 Respiratory Rate 17 06/15/20 19:49 Blood Pressure 101/59 L 06/15/20 19:49 Pulse Oximetry 98 06/15/20 19:49 Temperature 37.6 C H 06/15/20 19:49 Temperature Source Tympanic 06/15/20 19:49 Pulse 105 H 06/15/20 19:49 Respiratory Rate 17 06/15/20 19:49 Respiratory Effort 06/15/20 19:54 Blood Pressure 101/59 L 06/15/20 19:49 Blood Pressure Position Sitting 06/15/20 19:49 Pulse Oximetry 98 06/15/20 19:49 Oxygen Delivery Method Room Air 06/15/20 19:49 Oxygen Flow Rate 0 06/15/20 19:49 Pain Level 4 06/15/20 19:49
[2020-06-15 20:43] VITALS: BP 101/59; PULSE 105; RESP 17; TEMP 37.6; O2SAT 98
== END 2020-06-15 20:45 | disposition home or self-care (01) ==
PROVIDERS: Emergency Provider Physician Assistant; PCP Family Medicine
DX: M25.461 Effusion, right knee (principal)
CPT/HCPCS: 29505; 99283; L1820

== ENCOUNTER 2020-06-30 13:46 | Outpatient (REF) | payer MEDICARE, MEDICAID, SELFPAY ==
[2020-07-03 11:06] LABS: 2-Hydroxy Ethyl Flurazepam Not Detected ng/mL (Cutoff: 10); 6-monoacetylmorphine Not Detected ng/mL (Cutoff: 25); Alpha-Hydroxy Midazolam Not Detected ng/mL (Cutoff: 10); Alpha-Hydroxy Triazolam Not Detected ng/mL (Cutoff: 10); Alpha-Hydroxyalprazolam Not Detected ng/mL (Cutoff: 10); Alpha-OH-alprazolam Glucuronid Not Detected ng/mL (Cutoff: 50); Alprazolam Not Detected ng/mL (Cutoff: 10); Amphetamines Negative ng/mL (Cutoff: 500); Barbiturates Presumptive Positive ng/mL (Cutoff: 200); Buprenorphine Not Detected ng/mL (Cutoff: 5); Chlordiazepoxide Not Detected ng/mL (Cutoff: 10); Clobazam Not Detected ng/mL (Cutoff: 10); Clonazepam Not Detected ng/mL (Cutoff: 10); Cocaine Negative ng/mL (Cutoff: 150); Codeine Not Detected ng/mL (Cutoff: 25); Comment Normal; Creatinine, U 140.8 mg/dL; Diazepam Not Detected ng/mL (Cutoff: 10); Dihydrocodeine Not Detected ng/mL (Cutoff: 25); EDDP Not Detected ng/mL (Cutoff: 25); Fentanyl Not Detected ng/mL (Cutoff: 2); Flurazepam Not Detected ng/mL (Cutoff: 10); Hydrocodone Not Detected ng/mL (Cutoff: 25); Hydromorphone Not Detected ng/mL (Cutoff: 25); Hydromorphone-3-beta-glucuroni Not Detected ng/mL (Cutoff: 100); Lorazepam Not Detected ng/mL (Cutoff: 10); Lorazepam Glucuronide Not Detected ng/mL (Cutoff: 50); Meperidine Not Detected ng/mL (Cutoff: 25); Methadone Not Detected ng/mL (Cutoff: 25); Midazolam Not Detected ng/mL (Cutoff: 10); Morphine Not Detected ng/mL (Cutoff: 25); N-Desmethylclobazam Not Detected ng/mL (Cutoff: 200); N-desmethyltapentadol Not Detected ng/mL (Cutoff: 50); Naloxone Not Detected ng/mL (Cutoff: 25); Norbuprenorphine Present ng/mL (Cutoff: 5); Norfentanyl Not Detected ng/mL (Cutoff: 2); Norhydrocodone Not Detected ng/mL (Cutoff: 25); Normeperidine Not Detected ng/mL (Cutoff: 25); Noroxycodone Not Detected ng/mL (Cutoff: 25); Noroxymorphone Not Detected ng/mL (Cutoff: 25); O-desmethyltramadol Present ng/mL (Cutoff: 25); Oxazepam Glucuronide Not Detected ng/mL (Cutoff: 50); Phencyclidine Negative ng/mL (Cutoff: 25); Prazepam Not Detected ng/mL (Cutoff: 10); Propoxyphene Not Detected ng/mL (Cutoff: 25); Specific Gravity 1.012; Tapentadol Not Detected ng/mL (Cutoff: 25); Temazepam Not Detected ng/mL (Cutoff: 10); Temazepam Glucuronide Not Detected ng/mL (Cutoff: 50); Tetrahydrocannabinol Presumptive Positive ng/mL (Cutoff: 50); Tramadol Present ng/mL (Cutoff: 25); Triazolam Not Detected ng/mL (Cutoff: 10); Zolpidem Phenyl-4-Carboxy acid Not Detected ng/mL (Cutoff: 10); pH 6.6
[2020-07-04 14:06] LABS: Carboxy-THC Interpretation Positive.; Delta-9 CarboxyThc by LC-MS/MS 253 ng/mL (Cutoff:<3)
[2020-07-24 09:57] LABS: Amobarbital Negative ng/mL (Cutoff: 100); Butalbital 2257 ng/mL (Cutoff: 100); Pentobarbital Negative ng/mL (Cutoff: 100); Secobarbital Negative ng/mL (Cutoff: 100)
[2020-07-24 09:58] LABS: Barbiturates Interpretation Positive
== END 2020-06-30 14:06 ==
LOC: LBN 13:46
PROVIDERS: PCP Family Medicine; Visit Provider Nurse Practitioner Family
DX: Z79.899 Other long term (current) drug therapy (principal)
CPT/HCPCS: 80307; 80347; 80349; 80364; 80345

== ENCOUNTER → 2020-07-01 14:06 | Outpatient (BNVA) | payer MEDICARE, MEDICAID, SELFPAY | PROVIDERS: PCP Family Medicine; Referring Provider Occupational Therapist; Visit Provider Student in an Organized Health Care Education/Training Program | DX: R69 Illness, unspecified (principal) ==

== ENCOUNTER 2020-07-20 01:21 | Outpatient (CLI) | payer OTHER, SELFPAY ==
--- NOTE | 2020-07-20 11:45 | DI.MRI_ITS ---
EXAM: MR LOWER JOINT RT WO CLINICAL HISTORY: R KNEE PAIN, TEAR OF MENISCUS RT KNEE, S83.206A [id number] TECHNIQUE: Multiplanar multisequence MRI was performed.. COMPARISON: No exams were available for comparison FINDINGS: MR examination of the knee was performed according to the usual protocol. There is a moderate-sized joint effusion. There is marked bony signal abnormality involving lateral femoral condyle with some small areas of ab normal signal also seen in lateral tibial plateau and medial femoral condyle. Findings are consisten t with bony marrow injury with no definite fracture seen. There are focal areas of subchondral signal abnormality with question minimal overlying cortical defo rmity of the central posterior portion of the lateral femoral condyle which could represent tiny impa ction fractures. Medial tibiofemoral joint: The articular cartilage of the femur and tibia appears well maintained. T he meniscus and attachments appear intact. The medial collateral ligament appears intact. No integration aide omedial corner injury seen. Lateral tibiofemoral joint: The articular cartilage of the femur and tibia peers well maintained. Th e meniscus and attachments appear intact. Mildly abnormal signal is seen in popliteus attachment and proximal lateral collateral ligament, no discrete tear seen. Otherwise the lateral collateral ligam ent complex and posterolateral corner structures appear intact. Patellofemoral joint and extensor mechanism: The articular cartilage of the patellofemoral joint appe ars intact. The superior and inferior patellar fat pad show mildly abnormal signal The quadriceps tendon and patellar tendon appear intact with no evidence of a tear or significant michael ma. There is essentially unremarkable appearance of the medial retinacula and attachments. Lateral retinacular femoral attachment shows abnormal signal and may be partially torn. Cruciate ligaments: Cruciate ligaments and attachments appear normal with no evidence of a tear. Tibiofibular joint: No specific abnormality involving the tibiofibular joint. There is apparent muscle tearing of the proximal aspect of the lateral gastrocnemius muscle and its t endinous attachment suggesting a non retracted partial thickness tear. IMPRESSION: Injuries are noted involving proximal aspect of lateral gastrocnemius muscle and tendinous attachment consistent with tear as well as significant bony trabecular injury of the lateral femoral condyle wi th possible small focal impactions of the central to posterior aspect of the lateral femoral condyle. Additional findings as described above include minimal injuries proximal aspect of lateral collateral ligament and popliteus tendon and possible lateral retinacular femoral attachment injury. DATA REPOSITORY:
== END 2020-07-20 01:41 ==
PROVIDERS: PCP Family Medicine; Visit Provider Student in an Organized Health Care Education/Training Program
DX: M25.561 Pain in right knee (principal); S86.111A Strain of other muscle(s) and tendon(s) of posterior muscle group at lower leg level, right leg, initial encounter
CPT/HCPCS: 73721

== ENCOUNTER 2021-06-16 20:42 | Outpatient (REF) | payer OTHER, MEDICAID, SELFPAY | END 2021-06-16 20:43 | disposition home or self-care (01) | LOC: LBN 20:42 | PROVIDERS: PCP Family Medicine; Visit Provider Physician Assistant Medical | DX: L02.414 Cutaneous abscess of left upper limb (principal) | CPT/HCPCS: 87077; 87070; 87186; 87205 ==

== ENCOUNTER 2021-08-16 16:19 | Outpatient (REF) | payer OTHER, MEDICAID, SELFPAY ==
[2021-08-18 15:36] LABS: COVID-19 RT-PCR UVMMC Result Negative (Negative)
== END 2021-08-16 16:20 | disposition home or self-care (01) ==
LOC: LBN 16:19
PROVIDERS: PCP Family Medicine; Visit Provider Physician Assistant
DX: J06.9 Acute upper respiratory infection, unspecified (principal); Z20.822 Contact with and (suspected) exposure to COVID-19
CPT/HCPCS: U0003

== ENCOUNTER → 2022-02-24 01:46 | Outpatient (CLI) | payer OTHER, MEDICARE, MEDICAID, SELFPAY ==
--- NOTE | 2022-02-24 | DI.MAMMO_ITS ---
Exam(s) MAMMO SCREENING EXAM: MAMMO SCREENING CLINICAL HISTORY: SCREENING, [id number],Z12.39. TECHNIQUE: Bilateral full field digital CC and MLO mammographic images were obtained with 3D tomosyn thesis and utilizing computer aided detection (CAD). COMPARISON: Prior mammograms were reviewed, the most recent being 2016. FINDINGS: There has been no significant change in the appearance and distribution of the fibroglandular tissue In the right breast a small nodular density located medial of center on the CC view which is unchange d from 2016 and therefore benign. The left breast at approximately 6 o'clock position is a well-defined noncalcified nodule measuring 5 x 4 millimeters, located 4 cm in from the nipple, more evident than on prior study of 2016. There are no malignant-appearing microcalcification groups in this region or elsewhere in either [address]. There is no significant architectural distortion nor skin thickening-retraction. IMPRESSION: 1. Stable benign-appearing right breast finding. 2. Small asymmetric density-probable nodule in the left breast measuring 5 x 4 millimeters. Spot comp ression view and ultrasound recommended. BI-RADS Category 0 - Assessment Incomplete: Need additional imaging evaluation Breast Density - Category B - Scattered areas of fibroglandular density Breast density Category C or D implies that the patient has dense breast tissue. Dense breast tissue can make it harder to find cancer on a mammogram. Dense breast tissue is also associated with an incr eased risk of breast cancer. This information about the result of the mammogram report was provided to the patient to raise their awareness. Use this report when you speak with the patient about their risks for breast cancer, which includes their family history. At that time, you may recommend additional screening tests (Ultrasoun d or MRI) as these tests may add significant information. A negative radiographic report should not delay biopsy if a dominant or clinically suspicious mass is present. Up to ten percent of cancers are not identified on mammography. A negative report may reinforce clinical impression. Adenosis and dense breasts may obscure an underlying neoplasm. False positive reports average 6 to 10%. Patient will receive a letter notifying them of these results.
== END ==
PROVIDERS: PCP Family Medicine; Visit Provider Internal Medicine
DX: Z12.31 Encounter for screening mammogram for malignant neoplasm of breast (principal); R92.8 Other abnormal and inconclusive findings on diagnostic imaging of breast
CPT/HCPCS: 77063; 77067

== ENCOUNTER → 2022-03-02 03:01 | Outpatient (CLI) | payer OTHER, MEDICARE, MEDICAID, SELFPAY ==
--- NOTE | 2022-03-02 | DI.MAMMO_ITS ---
Exam(s) MAMMO SCREEN CALL BACK UNI EXAM: MAMMO SCREEN CALL BACK UNI CLINICAL HISTORY: F/U MAMMO,asymm density,?nodule,[id number] TECHNIQUE: Spot compression views and tomographic imaging were performed. COMPARISON: 24 February 2022 and 2015 FINDINGS: No suspicious masses or suspicious microcalcifications are seen. There is a persistent circumscribed ovoid nodule measuring 5 millimeters in greatest dimension. The nodule filled large on the prior ex am. IMPRESSION: BI-RADS Category 2 - Benign Findings Yearly screening mammography is recommended. Breast Density - Category B, scattered fibroglandular densities.
== END ==
PROVIDERS: PCP Family Medicine; Visit Provider Internal Medicine
DX: Z12.31 Encounter for screening mammogram for malignant neoplasm of breast (principal); R92.8 Other abnormal and inconclusive findings on diagnostic imaging of breast; N60.82 Other benign mammary dysplasias of left breast
CPT/HCPCS: 77063; 77067

== ENCOUNTER 2023-06-07 08:08 | Outpatient (CLI) | payer OTHER, MEDICAID, SELFPAY | END 2023-06-07 08:09 | disposition home or self-care (01) | LOC: DI.CARD 08:08 | PROVIDERS: PCP Internal Medicine; Visit Provider Internal Medicine Cardiovascular Disease | DX: I25.10 Atherosclerotic heart disease of native coronary artery without angina pectoris (principal) | CPT/HCPCS: 93010 ==

== ENCOUNTER → 2023-06-23 00:21 | Outpatient (CLI) | payer OTHER, SELFPAY ==
--- NOTE | 2023-06-23 12:45 | DI.MAMMO_ITS ---
Exam(s) MAMMO SCREENING EXAM: MAMMO SCREENING CLINICAL HISTORY: SCREENING, Z12.31, [id number]. TECHNIQUE: Bilateral full field digital CC and MLO mammographic images were obtained with 3D tomosyn thesis and utilizing computer aided detection (CAD). COMPARISON: Prior mammograms were reviewed. FINDINGS: No new findings in the right breast Laterally in the left breast there is unchanged small 3 millimeter nodule. Has appearance of benign intramammary lymph node. There are no new spiculated masses nor malignant appearing microcalcification groups. There is no significant architectural distortion nor skin thickening-retraction. IMPRESSION: Stable benign findings. No radiographic evidence of malignancy BI-RADS Category 2 - Benign Findings Breast Density - Category B - Scattered areas of fibroglandular density Breast density Category C or D implies that the patient has dense breast tissue. Dense breast tissue can make it harder to find cancer on a mammogram. Dense breast tissue is also associated with an incr eased risk of breast cancer. This information about the result of the mammogram report was provided to the patient to raise their awareness. Use this report when you speak with the patient about their risks for breast cancer, which includes their family history. At that time, you may recommend additional screening tests (Ultrasoun d or MRI) as these tests may add significant information. A negative radiographic report should not delay biopsy if a dominant or clinically suspicious mass is present. Up to ten percent of cancers are not identified on mammography. A negative report may reinforce clinical impression. Adenosis and dense breasts may obscure an underlying neoplasm. False positive reports average 6 to 10%. Patient will receive a letter notifying them of these results.
== END ==
PROVIDERS: PCP Internal Medicine; Visit Provider Internal Medicine
DX: Z12.31 Encounter for screening mammogram for malignant neoplasm of breast (principal)
CPT/HCPCS: 77063; 77067

== ENCOUNTER 2023-08-10 13:33 | Outpatient (REF) | payer OTHER, MEDICAID, SELFPAY ==
[2023-08-10 14:13] LABS: Source Nasal/Nares
[2023-08-10 14:56] LABS: COVID-19 PCR Negative (Negative)
== END 2023-08-10 13:34 | disposition home or self-care (01) ==
LOC: LBN 13:33
PROVIDERS: PCP Internal Medicine; Visit Provider Physician Assistant Medical
DX: Z20.822 Contact with and (suspected) exposure to COVID-19 (principal); J02.9 Acute pharyngitis, unspecified
CPT/HCPCS: 87635; 87070

== ENCOUNTER 2024-06-12 08:27 | Outpatient (CLI) | payer OTHER, MEDICAID, SELFPAY ==
--- NOTE | 2024-06-12 08:15 | RT.EKG_ITS ---
APPROVED REPORT Exam: Resting ECG Reason for Exam: cad Patient Location: O HR:81 bpm ECG Measurements Heart Rate 81 AXIS SC 173 P 26 QRSd 74 QRS -22 QT 357 T 37 QTc 415 Conclusion Sinus rhythm...normal P axis, V-rate 50- 99 Anterior infarct, old...Q >40mS, abnormal ST-T, V2-V5 Baseline wander in lead(s) V1,V2,V3,V4,V5,V6
== END 2024-06-12 08:28 | disposition home or self-care (01) ==
LOC: DI.CARD 08:27
PROVIDERS: PCP Internal Medicine; Visit Provider Internal Medicine Cardiovascular Disease
DX: I25.10 Atherosclerotic heart disease of native coronary artery without angina pectoris (principal)
CPT/HCPCS: 93010

== ENCOUNTER → 2024-06-12 15:04 | Outpatient (BNVA) | payer OTHER, MEDICAID, SELFPAY | PROVIDERS: PCP Internal Medicine; Visit Provider Internal Medicine Cardiovascular Disease | DX: Z95.810 Presence of automatic (implantable) cardiac defibrillator (principal); I25.10 Atherosclerotic heart disease of native coronary artery without angina pectoris | CPT/HCPCS: 93005; 93282 ==

== ENCOUNTER 2024-08-12 01:15 | Outpatient (CLI) | payer OTHER, SELFPAY ==
--- NOTE | 2024-08-12 13:29 | DI.MAMMO_ITS ---
Exam(s) MAMMO SCREENING EXAM: MAMMO SCREENING CLINICAL HISTORY: OK AUTH# [id number] SCRENEING MAMMO Z12.31. TECHNIQUE: Bilateral full field digital CC and MLO mammographic images were obtained with 3D tomosyn thesis and utilizing computer aided detection (CAD). COMPARISON: Prior mammograms were reviewed. FINDINGS: There is a left sided cardiac pacemaker now evident Small benign-appearing 3 millimeter nodule in the left breast lateral occasion is unchanged and proba norm benign lymph node There are no new spiculated masses nor malignant appearing microcalcification groups. There is no significant architectural distortion nor skin thickening-retraction. IMPRESSION: No radiographic evidence of malignancy. BI-RADS Category 2 - Benign Findings Breast Density - Category B - Scattered areas of fibroglandular density Breast density Category C or D implies that the patient has dense breast tissue. Dense breast tissue can make it harder to find cancer on a mammogram. Dense breast tissue is also associated with an incr eased risk of breast cancer. This information about the result of the mammogram report was provided to the patient to raise their awareness. Use this report when you speak with the patient about their risks for breast cancer, which includes their family history. At that time, you may recommend additional screening tests (Ultrasoun d or MRI) as these tests may add significant information. A negative radiographic report should not delay biopsy if a dominant or clinically suspicious mass is present. Up to ten percent of cancers are not identified on mammography. A negative report may reinforce clinical impression. Adenosis and dense breasts may obscure an underlying neoplasm. False positive reports average 6 to 10%. Patient will receive a letter notifying them of these results.
== END 2024-08-12 01:35 ==
PROVIDERS: PCP Internal Medicine; Visit Provider Internal Medicine
DX: Z12.31 Encounter for screening mammogram for malignant neoplasm of breast (principal)
CPT/HCPCS: 77063; 77067

== ENCOUNTER 2025-04-30 00:02 | Outpatient (CLI) | payer OTHER, SELFPAY ==
--- NOTE | 2025-04-30 14:41 | DI.US_ITS ---
APPROVED REPORT EXAM: Comprehensive 2D, Doppler, and color-flow Echocardiogram Patient Location: Out-Patient Indications: S/P ICD CAD Other Information Study Quality: Adequate. Technically limited study due to body habitus, smoker. Conclusion Normal left ventricular wall thickness and chamber size. Ejection fraction is 30 to 35%. There is an apical wall motion abnormality Normal right ventricular size Both atria are normal in size Device lead noted in the right heart There is no structural or hemodynamically significant valvular disease Wall motion Left Ventricle The left ventricle is normal size. Left ventricular systolic function is decreased. There is normal left ventricular wall thickness. Regional wall motion abnormalities are noted. There is no ventricular septal defect visualized. LVEF is 30-35%. Right Ventricle The right ventricle is normal size. Right ventricular systolic function could not be assessed. Device lead is present in the right ventricle. Atria The left atrium size is normal. The right atrium size is normal. The interatrial septum is intact with no evidence for an atrial septal defect. Aortic Valve The aortic valve is normal in structure. Aortic valve is trileaflet. There is no aortic valvular stenosis. No aortic regurgitation is present. Mitral Valve The mitral valve is normal in structure. No evidence of mitral valve stenosis. Trace mitral regurgitation. Tricuspid Valve The tricuspid valve is normal in structure. There is no tricuspid valve stenosis. Trace tricuspid regurgitation. The RVSP is 29.2 mmHg. Pulmonic Valve The pulmonary valve is normal in structure. There is no pulmonic valvular stenosis. There is no pulmonic valvular regurgitation. Great Vessels The aortic root is normal in size. The ascending aorta is normal in size. Aortic arch is not well visualized. IVC is normal in size and collapses >50% with inspiration. Pericardium There is no pericardial effusion. 2D Dimensions IVSD d PLAX 0.70 cm F: 0.6-1.0 Ao Root d 3.13 cm F: 2.7 - 3.3 LVPW d PLAX 0.74 cm F: 0.6 - 1.0 Ao Asc Diam d 3.12 cm F: 2.3 - 3.1 LVID d PLAX 4.98 cm F: 3.8 - 5.2 LVDs 4.27 cm F: 2.2 - 3.5 LV EF Teichholz 30.4 % FS 14.31 % LV EDV (Teich) 117.3 mL LV ESV (Teich) 81.7 mL M-Mode TAPSE 1.96 cm (M/F) >1.7 Auto EF LV EDV A4C 144.5 mL LV EDV A2C 104.0 mL LV EDV BP 123.4 mL LV ESV A4C 102.7 mL LV ESV A2C 68.8 mL LV ESV BP 85.9 mL LVEF(%) A4C 28.9 % LVEF(%) A2C 33.8 % LVEF(%) BP 30.4 % LV SV A4C 41.8 ml LV SV A2C 35.2 ml LV SV BP 37.4 ml LV CO A4C 3.0 L/min LV CO A2C 3.1 L/min LV CO BP 3.0 L/min HR A4C 72.29 BPM HR A2C 86.76 BPM LV EDV Index (BP) LV Strain Long Pk Overal Avg (s) 9.10 LV Diastology MV E' medial 0.071 (>0.07 m/s) MV E Vmax 0.56 (0.4-1.3 m/s) MV E/E' MED 7.85 (<14) MV A Vmax 0.95 (0.4-1.3 m/s) MV E' lateral 0.054 (>0.1 m/s) E/A Ratio 0.6 MV E/E' LAT 10.30 (<14) MV E' Average 0.063 m/s MV E/E'(average) 8.91 Aortic Valve AoV Vmax 1.16 m/s LVOT Vmax 0.92 m/s AoV Peak Grad 5.4 mmHg LVOT Peak Grad 3.4 mmHg AoV Area (Vmax) 2.70 cm2 LVOT VTI 0.171 m AoV VTI 0.205 m LVOT Mean Grad 1.8 mmHg AoV Mean Tae. 0.84 m/s LVOT SV 58.02 mL AoV Mean Grad 3.1 mmHg LVOT Diam s 2.05 cm AoV Area (VTI) 2.82 cm2 AV Regurg Peak Gr. 5.37 mmHg Velocity Ratio 0.79 Mitral Valve MV DT 290 (160-240 msec) MV Vmax TIPS 1.01 m/s MV Mean Grad 1.7 (<2mmHg) MV VTI 0.244 m Pulmonary Valve PV Vmax 0.90 (0.5-1.5 m/s) RVOT Vmax 0.81 m/s PV Peak Grad 3.2 mmHg RVOT Peak Gr. 2.6 mmHg PV Mean Tae 0.62 m/s RVOT VTI 0.154 m PV Mean Grad 1.8 mmHg RVOT Mean Gr. 1.6 mmHg Tricuspid Valve RA Pressure 3.00 mmHg TR Vmax 2.56 m/s TV S' 0.13 m/s TR Peak Grad 26.1 mmHg RVSP (TR) 29.2 mmHg
== END 2025-04-30 00:22 ==
PROVIDERS: PCP Internal Medicine; Visit Provider Nurse Practitioner Family
DX: I25.10 Atherosclerotic heart disease of native coronary artery without angina pectoris (principal)
CPT/HCPCS: 93306